=== PATIENT | female | born 1965 | race Caucasian/White ===

== ENCOUNTER 2016-10-14 02:56 | Emergency (ER) | payer OTHER, BC ==
[2016-10-14] MEDS ORDERED: TYLENOL 325 MG TAB PO ONE ×2 (03:12→03:14)
[2016-10-14 03:25] VITALS: BP 146/80; BMI 52.9
--- NOTE | 2016-10-14 03:31 | DR.GENAD ---
HPI - PCP Primary Care Physician: rosenda - HPI Comment HPI Comment: Swelling left lower leg - Complaint/Symptoms Chief Complaint:: pt c/o lt leg pain and swelling-has poor circulation to leg - Nurses notes reviewed Nurses Notes Review: Yes - Source History Provided: Patient, Family Member - Mode of Arrival Mode of Arrival: Wheelchair - Timing Onset of Chief Complaint: 10/13/16 PMH - PMH Past Medical History: Yes Past Medical History: Diabetes, Hypertension Past Surgical History: Yes Surgical History: Abdominal Surgery, Cholecystectomy, Other Past Surgical History Comment: tubal - Family History History of Family Medical Conditions: Yes Family Medical History: Cancer, Coronary Artery Disease, Sudden Cardiac , Hypertension - Social History Do you use any recreational Drugs:: No - infectious screening In the last 2 months have you had wt loss of >10#?: NO Have you had fever, night sweats or hemotysis?: No Have you traveled outside the country in the last 6 months?: No Isolation: Standard ROS - Review of Systems Constitutional: No Symptoms Reported Eyes: No Symptoms Reported ENTM: No Symptoms Reported Respiratoy: No Symptoms Reported Cardiovascular: No Symptoms Reported Gastrointestinal/Abdominal: No Symptoms Reported Genitourinary: No Symptoms Reported Neurological: No Symptoms Reported Musculoskeletal: No Symptoms Reported Integumentary: See HPI Hematologic/Lymphatic: No Symptoms Reported Endocrine: No Symptoms Reported Psychiatric: No Symptoms Reported All Other Systems: Reviewed and Negative PE - Vital Signs Vitals: Temperature 101.1 F Pulse Rate 109 Respiratory Rate 22 Blood Pressure [Left Arm] 165/81 Blood Pressure [Right Arm] 160/67 Blood Pressure [Standing] 136/64 Blood Pressure [Sitting] 123/60 Blood Pressure [Lying] 166/63 Blood Pressure 146/80 O2 Sat by Pulse Oximetry 98 - General Limitations: No Limitations General Appearance: Alert, In No Apparent Distress - Head Head Exam: Normal Inspection - Eyes Eye exam: Normal Appearance - ENT ENT Exam: Normal Exam External Ear Exam: Normal External Inspection TM/Canal Exam: Bilateral Normal Nose Exam: Normal Nose Exam Mouth Exam: Normal Inspection Throat Exam: Normal Inspection - Neck Neck Exam: Normal Inspection - Chest Chest Inspection: Normal Inspection - Respiratory Respiratory Exam: Normal Lung Sounds Bilat Respiratory Exam: Bilateral Clear to Auscultation - Cardiovascular Cardiovascular Exam: Regular Rate, Normal Rhythm - Abdominal Exam Abdominal Exam: Normal Inspection, Normal Bowel Sounds, Soft - Extremities Extremities Exam: Full ROM, Joint Swelling - Back Back Exam: Normal Inspection, Full ROM - Neurologic Neurological Exam: Alert, Oriented X3, CN II-XII Intact - Psychiatric Psychiatric Exam: Normal Affect, Normal Mood - Skin Skin Exam: Warm, Dry, Intact, Normal Color Course - Education/Counseling Education/Counseling: Patient, Family Educated On: Treatment, Diagnosis, Needs for Follow Up - Diagnosis Discharge Problem: Cellulitis of left lower extremity - Discharge Plan Disposition: 01 HOME, SELF-CARE Condition: Stable - Follow ups/Referrals Follow ups/Referrals: YAS PIERSON [Primary Care Provider] - 3 days - Instructions Instructions: Diabetes and Foot Care, Cellulitis Additional Instructions: follow up with Dr. Pierson tomorrow about possible out patient treatment for cellulitis
[2016-10-14] MEDS ORDERED: TORADOL 30 MG VIAL IVP ONE (03:40)
[2016-10-14] MEDS ORDERED: CLEOCIN 600 MG IV PREMIX 600 MG/50 ML BAG IV ONE (03:40)
[2016-10-14] MEDS ORDERED: CLEOCIN VIAL 600 MG ONE (03:45)
[2016-10-14] MEDS ORDERED: TORADOL 30 MG VIAL ONE (03:45)
[2016-10-14] MEDS ORDERED: NS 100 ML IV 100 ML IV ONE (03:45)
== END 2016-10-14 04:46 | disposition home or self-care (01) ==
LOC: ER 02:56
DX: L03.116 Cellulitis of left lower limb (principal)
CPT/HCPCS: 96365; 96374; 96375; 99282; 99283; A4222; J1885; S0077

== ENCOUNTER → 2016-10-15 | Outpatient (CLI) | payer OTHER, BC ==
[2016-10-14 03:25] VITALS: BP 146/80
[2016-10-15 13:01] LABS: BASOPHILS # (AUTO) 0.1 X10^3/uL (0.0-0.1); BASOPHILS % (AUTO) 0.8 % (0.2-1.0); EOSINOPHILS # (AUTO) 0.2 x10^3/uL (0.0-0.2); EOSINOPHILS % (AUTO) 1.6 % (0.9-2.9); HEMATOCRIT 31.8 % (36.0-47.0); HEMOGLOBIN 10.2 g/dL (12.0-16.0); LYMPHOCYTES # (AUTO) 1.4 X10^3/uL (1.3-2.9); LYMPHOCYTES % (AUTO) 11.6 % (21.0-51.0); MEAN PLATELET VOLUME 8.3 fL (7.4-11.0); MONOCYTES # (AUTO) 0.9 x10^3/uL (0.3-0.8); MONOCYTES % (AUTO) 7.3 % (0.0-13.0); NEUTROPHILS # (AUTO) 9.7 x10^3/uL (2.2-4.8); NEUTROPHILS % (AUTO) 78.7 % (42.0-75.0); PLATELET COUNT 285 X10^3/uL (150.0-450.0); RED BLOOD COUNT 4.25 X10^6/uL (3.5-5.4); RED CELL DISTRIBUTION WIDTH 18.9 % (11.6-16.5); WHITE BLOOD COUNT 12.4 X10^3/uL (3.6-10.0)
[2016-10-15 13:16] LABS: HEMOGLOBIN A1C 6.9 % (4.5-6.2)
[2016-10-15 13:17] LABS: ALANINE AMINOTRANSFERASE 34 Units/L (12-78); ALBUMIN 2.9 g/dL (3.4-5.0); ALKALINE PHOSPHATASE 126 Units/L (46-116); ASPARTATE AMINO TRANSFERASE 61 Units/L (15-37); BLOOD UREA NITROGEN 20 mg/dL (7-18); CALCIUM 8.4 mg/dL (8.5-10.1); CARBON DIOXIDE 26.5 mmol/L (21-32); CHLORIDE 102 mmol/L (98-107); CHOL/HDL RATIO 3.3 (0.0-5.0); CHOLESTEROL 129 mg/dL (0-200); COR CA(FOR HYPOALB) 9.3 mg/dL (8.5-10.1); CREATININE 1.37 mg/dL (0.55-1.02); GLUCOSE 88 mg/dL (65-99); HDL CHOLESTEROL 39 mg/dL (40-60); SODIUM 137 mmol/L (136-145); TRIGLYCERIDES 61 mg/dL (0-150); eGFR BLACK RACES 52 (>60); eGFR NON BLACK RACES 43 (>60)
[2016-10-15 13:25] LABS: CREATININE,URINE 153.02 mg/dL (29-226); MICROALBUMIN,URINE 39.8 mg/L
[2016-10-15 13:58] LABS: PLATELET MORPHOLOGY COMMENT NORMAL (NORMAL)
[2016-10-15 13:59] LABS: HYPOCHROMASIA SLIGHT
== END ==
LOC: LAB 12:21
PROVIDERS: ATTEND Obstetrics & Gynecology Obstetrics
DX: E11.9 Type 2 diabetes mellitus without complications (principal)
CPT/HCPCS: 36415; 80053; 80061; 82043; 83036; 85025

== ENCOUNTER 2016-11-11 22:02 | Inpatient (IN) | payer OTHER, BC ==
--- NOTE | 2016-11-11 23:17 | DR.GENAD ---
HPI - PCP Primary Care Physician: DANGELO - HPI Comment HPI Comment: PATIENT IS WEAK AND SHE IS RUNNING FEVER. SHE HAS CHRONIC STASIS DERMATITIS BUT SHE BELIEVE THIS TO BE SPIDER BITE. SHE IS A DIABETIC PATIENT. - Complaint/Symptoms Chief Complaint Doctors Comments: LEFT LEG SWOLLEN, RED AND PUSTLAR LESION ON THE ANTERIOR ASPECT OF THE DRAINING PUS. SHE STARTED TO NOTICE CHANGES 3 DAYS AGO. Chief Complaint:: PT STATES" I WANT TOO BE ADMITTED IN THE HOSPITAL I DON'T FEEL GOOD I NEED TOO BE IN THE HOSPITAL. I'M WEAK AND I JUST WANT TOO BE IN THE HOSPITAL I'M WEAK." - Nurses notes reviewed Nurses Notes Review: Yes - Source History Provided: Patient - Mode of Arrival Mode of Arrival: Wheelchair - Timing Onset of Chief Complaint: 11/08/16 Came on: Suddenly - Duration Duration: Constant Duration: Days - Severity Severity: Moderate PMH - PMH Past Medical History: Yes Past Medical History: Diabetes, Hypertension Past Surgical History: Yes Surgical History: Abdominal Surgery, Cholecystectomy, Other - Family History History of Family Medical Conditions: Yes Family Medical History: Cancer, Coronary Artery Disease, Sudden Cardiac , Hypertension - Social History Do you use any recreational Drugs:: No - infectious screening In the last 2 months have you had wt loss of >10#?: NO Have you had fever, night sweats or hemotysis?: No Have you traveled outside the country in the last 6 months?: No Isolation: Standard ROS - Review of Systems Constitutional: Chills, Fever, Weakness, Fatigue Eyes: No Symptoms Reported. negative: Eye Pain, Discharge ENTM: No Symptoms Reported Respiratoy: Non-Productive Cough, Short of Breath (ON EXERSION), Wheezing. negative: Hemoptysis Cardiovascular: Edema. negative: Chest Pain Gastrointestinal/Abdominal: Nausea. negative: Abdominal Pain, Diarrhea, Vomiting Genitourinary: No Symptoms Reported. negative: Dysuria, Frequency, Hematuria Neurological: Headache, Weakness, Dizziness Musculoskeletal: Joint Pain, Joint Swelling, Muscle Pain Integumentary: Change in Color, Wound (LT LEG) Hematologic/Lymphatic: Easy Bruising Endocrine: negative: Flushing, Increased Thirst, Increased Urine All Other Systems: Reviewed and Negative PE - Vital Signs Vitals: Temperature 101.3 F Pulse Rate 112 Respiratory Rate 18 Blood Pressure [Left Arm] 165/81 Blood Pressure [Right Arm] 160/67 Blood Pressure [Standing] 136/64 Blood Pressure [Sitting] 123/60 Blood Pressure [Lying] 166/63 Blood Pressure 142/68 O2 Sat by Pulse Oximetry 98 - General Limitations: No Limitations General Appearance: Alert - Head Head Exam: Normal Inspection - Eyes Eye exam: Normal Appearance - ENT ENT Exam: Normal External Ear Exam External Ear Exam: Normal External Inspection TM/Canal Exam: Bilateral Normal Nose Exam: Normal Nose Exam Mouth Exam: Normal Inspection Throat Exam: Normal Inspection - Neck Neck Exam: Trachea Midline - Chest Chest Inspection: Symmetric Chest Wall Rise - Respiratory Respiratory Exam: Normal Lung Sounds Bilat Respiratory Exam: Bilateral Wheezing, Bilateral Rhonchi, Lower Wheezing, Lower Rhonchi - Cardiovascular Cardiovascular Exam: Regular Rate, Normal Rhythm, Normal Heart Sounds - Abdominal Exam Abdominal Exam: Normal Bowel Sounds, Soft. negative: Tenderness - Extremities Extremities Exam: Tenderness (LT LEG), Edema, Joint Swelling (LT LEG) - Back Back Exam: Normal Inspection - Neurologic Neurological Exam: Alert, Oriented X3 - Psychiatric Psychiatric Exam: Anxious - Skin Skin Exam: Erythema MDM - Additional Information Additional Information Obtained From: Family - Differential Diagnosis Differential Diagnosis: CELLULITIS LLE, ABSCESS LLE, DM Course - Treatment Treatment: SEE ORDERS. - Consultation Consultation Comments: DISCUSS PATIENT WITH DR. PIERSON. HE WILL ADMIT PATIENT. - Education/Counseling Education/Counseling: Patient, Family, Education Educated On: Treatment, Diagnosis ROR - Labs Reviewed Laboratory Results Reviewed?: Yes Result Diagrams: 11/12/16 04:30 11/12/16 04:30 Laboratory: WBC 26.2 X10^3/uL (3.6-10.0) H* 11/11/16 23:35 RBC 4.18 X10^6/uL (3.5-5.4) 11/11/16 23:35 Hgb 10.3 g/dL (12.0-16.0) L 11/11/16 23:35 Hct 32.1 % (36.0-47.0) L 11/11/16 23:35 MCV 76.9 fL (80.0-100.0) L 11/11/16 23:35 MCH 24.7 pg (27.0-34.0) L 11/11/16 23:35 MCHC 32.1 g/dL (33.0-35.0) L 11/11/16 23:35 RDW 18.5 % (11.6-16.5) H 11/11/16 23:35 Plt Count 159 X10^3/uL (150.0-450.0) 11/11/16 23:35 Plt Count Comment Adequate (ADEQUATE) 11/11/16 23:35 MPV 8.5 fL (7.4-11.0) 11/11/16 23:35 Neut % 94.6 % (42.0-75.0) H 11/11/16 23:35 Lymph % 2.8 % (21.0-51.0) L 11/11/16 23:35 [place] % 2.5 % (0.0-13.0) 11/11/16 23:35 Eos % 0.0 % (0.9-2.9) L 11/11/16 23:35 Baso % 0.1 % (0.2-1.0) L 11/11/16 23:35 Neut # 24.8 x10^3/uL (2.2-4.8) H 11/11/16 23:35 Lymph # 0.7 X10^3/uL (1.3-2.9) L 11/11/16 23:35 [place] # 0.7 x10^3/uL (0.3-0.8) 11/11/16 23:35 Eos # 0.0 x10^3/uL (0.0-0.2) 11/11/16 23:35 Baso # 0.0 X10^3/uL (0.0-0.1) 11/11/16 23:35 Absolute Nucleated RBC 0.0 /100WBC 11/11/16 23:35 Total Counted 100 11/11/16 23:35 Neutrophils % (Manual) 77 % (39-76) H 11/11/16 23:35 Band Neutrophils % 18 % (0-10) H 11/11/16 23:35 Lymphocytes % (Manual) 3 % (13-43) L 11/11/16 23:35 Monocytes % (Manual) 2 % (4-9) L 11/11/16 23:35 Plt Morphology Comment Normal (NORMAL) 11/11/16 23:35 RBC Morphology Abnormal (NORMAL) A 11/11/16 23:35 Hypochromasia Slight A 11/11/16 23:35 Anisocytosis 1+ A 11/11/16 23:35 Microcytosis Slight A 11/11/16 23:35 Sodium 135 mmol/L (136-145) L 11/11/16 23:35 Corrected Sodium 137 mmol/L (136-145) 11/11/16 23:35 Potassium 3.9 mmol/L (3.5-5.1) 11/11/16 23:35 Chloride 99 mmol/L (98-107) 11/11/16 23:35 Carbon Dioxide 27.0 mmol/L (21-32) 11/11/16 23:35 BUN 16 mg/dL (7-18) 11/11/16 23:35 Creatinine 1.52 mg/dL (0.55-1.02) H 11/11/16 23:35 Est GFR (MDRD) Af Amer 46 (>60) L 11/11/16 23:35 Est GFR (MDRD) Non-Af 38 (>60) L 11/11/16 23:35 Glucose 187 mg/dL (65-99) H 11/11/16 23:35 Calcium 7.9 mg/dL (8.5-10.1) L 11/11/16 23:35 Corrected Calcium 8.9 mg/dL (8.5-10.1) 11/11/16 23:35 Total Bilirubin 0.90 mg/dL (0.2-1.0) 11/11/16 23:35 AST 27 Units/L (15-37) 11/11/16 23:35 ALT 22 Units/L (12-78) 11/11/16 23:35 Alkaline Phosphatase 127 Units/L (46-116) H 11/11/16 23:35 Total Protein 7.8 g/dL (6.4-8.2) 11/11/16 23:35 Albumin 2.7 g/dL (3.4-5.0) L 11/11/16 23:35 Globulin 5.1 g/dL (2.5-4.5) H 11/11/16 23:35 Albumin/Globulin Ratio 0.5 Ratio (1.1-2.1) L 11/11/16 23:35 Influenza A (H1N1) PCR Not detected (NOT DETECT) 11/11/16 22:33 Influenza Type A (PCR) Negative (NEGATIVE) 11/11/16 22:33 Influenza Type B (PCR) Negative (NEGATIVE) 11/11/16 22:33 - XRAY XRAY Interpreted by: Radiologist XRAY Findings: REPORT DISCUSS WITH PATIENT. - Diagnosis Discharge Problem: Cellulitis of left lower extremity, Diabetes mellitus type 2 - Discharge Plan Disposition: ADMITTED INPATIENT Condition: Stable - Follow ups/Referrals - Instructions
[2016-11-11 23:52] LABS: BASOPHILS % (AUTO) 0.1 % (0.2-1.0); HEMATOCRIT 32.1 % (36.0-47.0); HEMOGLOBIN 10.3 g/dL (12.0-16.0); LYMPHOCYTES # (AUTO) 0.7 X10^3/uL (1.3-2.9); LYMPHOCYTES % (AUTO) 2.8 % (21.0-51.0); MEAN CORPUSCULAR HEMOGLOBIN 24.7 pg (27.0-34.0); MEAN CORPUSCULAR HGB CONC 32.1 g/dL (33.0-35.0); MEAN CORPUSCULAR VOLUME 76.9 fL (80.0-100.0); MEAN PLATELET VOLUME 8.5 fL (7.4-11.0); MONOCYTES # (AUTO) 0.7 x10^3/uL (0.3-0.8); MONOCYTES % (AUTO) 2.5 % (0.0-13.0); NEUTROPHILS # (AUTO) 24.8 x10^3/uL (2.2-4.8); NEUTROPHILS % (AUTO) 94.6 % (42.0-75.0); PLATELET COUNT 159 X10^3/uL (150.0-450.0); RED BLOOD COUNT 4.18 X10^6/uL (3.5-5.4); RED CELL DISTRIBUTION WIDTH 18.5 % (11.6-16.5)
[2016-11-11 23:55] LABS: WHITE BLOOD COUNT 26.2 X10^3/uL (3.6-10.0)
[2016-11-12 00:02] LABS: ALBUMIN 2.7 g/dL (3.4-5.0); ANISOCYTOSIS 1+; BAND NEUTROPHILS % 18 % (0-10); CALCIUM 7.9 mg/dL (8.5-10.1); COR CA(FOR HYPOALB) 8.9 mg/dL (8.5-10.1); CREATININE 1.52 mg/dL (0.55-1.02); HYPOCHROMASIA SLIGHT; MICROCYTOSIS SLIGHT; PLATELET MORPHOLOGY COMMENT NORMAL (NORMAL)
[2016-11-12 00:13] LABS: TOTAL PROTEIN 7.8 g/dL (6.4-8.2)
[2016-11-12] MEDS ORDERED: PHENERGAN TAB 25 MG PO PRN (00:53)
[2016-11-12] MEDS ORDERED: VANCOMYCIN 1 GM PREMIX (ADDVANTAGE) 250 ML IV NR (01:00)
[2016-11-12] MEDS: NS 1000 ML 1,000 ML IV SCH ×3 (01:13→18:21)
[2016-11-12] MEDS: MORPHINE SULFATE INJ 4 MG IVP PRN ×2 (01:15→19:07)
[2016-11-12] MEDS: TYLENOL 325 MG TAB PO PRN ×3 (02:20→20:39)
--- NOTE | 2016-11-12 03:47 | RAD ---
Chest, one view Indication: Chest pain. Findings: Borderline cardiomegaly is unchanged. There is stable positioning of the right subclavian Port-A-Cath. No overt edema, focal infiltrates, or large effusion identified. Impression: No acute cardiopulmonary disease or significant change from prior. Reported By:
[2016-11-12 05:36] LABS: BASOPHILS # (AUTO) 0.1 X10^3/uL (0.0-0.1); BASOPHILS % (AUTO) 0.3 % (0.2-1.0); HEMATOCRIT 29.7 % (36.0-47.0); HEMOGLOBIN 9.4 g/dL (12.0-16.0); LYMPHOCYTES # (AUTO) 0.8 X10^3/uL (1.3-2.9); LYMPHOCYTES % (AUTO) 3.4 % (21.0-51.0); MEAN CORPUSCULAR HEMOGLOBIN 24.5 pg (27.0-34.0); MEAN CORPUSCULAR HGB CONC 31.7 g/dL (33.0-35.0); MEAN CORPUSCULAR VOLUME 77.2 fL (80.0-100.0); MEAN PLATELET VOLUME 8.8 fL (7.4-11.0); MONOCYTES # (AUTO) 0.6 x10^3/uL (0.3-0.8); MONOCYTES % (AUTO) 2.6 % (0.0-13.0); NEUTROPHILS % (AUTO) 93.7 % (42.0-75.0); PLATELET COUNT 167 X10^3/uL (150.0-450.0); RED BLOOD COUNT 3.84 X10^6/uL (3.5-5.4); RED CELL DISTRIBUTION WIDTH 18.8 % (11.6-16.5)
[2016-11-12 05:37] LABS: WHITE BLOOD COUNT 23.5 X10^3/uL (3.6-10.0)
[2016-11-12 05:41] LABS: ALBUMIN 2.4 g/dL (3.4-5.0); CALCIUM 7.4 mg/dL (8.5-10.1); CARBON DIOXIDE 26.2 mmol/L (21-32); COR CA(FOR HYPOALB) 8.7 mg/dL (8.5-10.1); CREATININE 1.5 mg/dL (0.55-1.02); TOTAL PROTEIN 7.2 g/dL (6.4-8.2)
[2016-11-12] MEDS: ZOSYN VIAL 3.375 GM 3.375 GM in NS 100 ML IV + SPIKE MINIBAG* 100 ML IV SCH ×3 (05:45→21:05)
[2016-11-12 05:57] LABS: ANISOCYTOSIS 1+; BAND NEUTROPHILS % 22 % (0-10); HYPOCHROMASIA SLIGHT; MICROCYTOSIS SLIGHT; PLATELET MORPHOLOGY COMMENT NORMAL (NORMAL)
[2016-11-12] MEDS: LOVENOX INJ 30 MG SYR SC SCH ×2 (08:42→20:39)
[2016-11-12] MEDS ORDERED: ANTIVERT TAB 25 MG PO PRN (09:27)
[2016-11-12] MEDS ORDERED: PATIENT'S HOME MEDICATION RESPIRATORY (Oxycodone W/ Acetaminophen [Oxycodone/Acetaminophen PO PRN (09:27)
[2016-11-12] MEDS ORDERED: [UNRECOGNIZED DRUG - OTHER] PO SCH ×2 (09:30→14:00)
[2016-11-12] MEDS ORDERED: [UNRECOGNIZED DRUG - OTHER] PO SCH (09:30)
[2016-11-12] MEDS ORDERED: [UNRECOGNIZED DRUG - OTHER] PO SCH (09:30)
[2016-11-12] MEDS ORDERED: [UNRECOGNIZED DRUG - OTHER] PO SCH (09:30)
[2016-11-12] MEDS: ZOLOFT PO SCH (10:33)
[2016-11-12] MEDS: NEURONTIN CAP 400 MG PO SCH ×2 (10:33→20:40)
[2016-11-12] MEDS: COZAAR PO SCH (10:33)
[2016-11-12 10:35] LABS: BILIRUBIN,URINE NEGATIVE (NEGATIVE); BLOOD/HEMOGLOBIN,URINE 4+ (NEGATIVE); GLUCOSE, URINE NEGATIVE (NEGATIVE); KETONES,URINE NEGATIVE (NEGATIVE); LEUKOCYTE ESTERASE ,URINE 1+ (NEGATIVE); NITRITES,URINE NEGATIVE (NEGATIVE); PROTEIN,URINE 3+ (NEGATIVE); UROBILINOGEN,URINE NORMAL (NORMAL)
[2016-11-12 10:52] LABS: COLOR,URINE YELLOW (YELLOW)
[2016-11-12 10:53] LABS: APPEARANCE,URINE SLIGHTLY HAZY (CLEAR); BACTERIA,URINE TRACE /HPF (NEGATIVE); SQUAMOUS EPITHELIAL CELL,UR MODERATE /HPF (NEGATIVE)
[2016-11-12] MEDS ORDERED: K-DUR TAB 20 MEQ PO SCH (11:00)
[2016-11-12 16:40] VITALS: BMI 38.3
[2016-11-12] MEDS: VANCOMYCIN 1 GM PREMIX (ADDVANTAGE) 250 ML IV SCH (20:38)
[2016-11-12] MEDS: MIRAPEX TAB 0.25 MG PO SCH (20:40)
[2016-11-12] MEDS: SNACK - Diabetic Appropriate PO SCH (20:42)
[2016-11-12] MEDS: HumuLIN R SC PRN (20:47)
[2016-11-12] MEDS: VISTARIL PO PRN (22:32)
[2016-11-13] MEDS: NS 1000 ML 1,000 ML IV SCH ×3 (06:05→18:09)
[2016-11-13] MEDS: ZOSYN VIAL 3.375 GM 3.375 GM in NS 100 ML IV + SPIKE MINIBAG* 100 ML IV SCH ×3 (06:05→22:35)
[2016-11-13] MEDS: MORPHINE SULFATE INJ 4 MG IVP PRN (06:14)
[2016-11-13] MEDS: LOVENOX INJ 30 MG SYR SC SCH ×2 (08:39→20:40)
[2016-11-13] MEDS: ZOLOFT PO SCH (08:40)
[2016-11-13] MEDS: NEURONTIN CAP 400 MG PO SCH ×2 (08:40→20:42)
[2016-11-13] MEDS: COZAAR PO SCH (08:41)
[2016-11-13] MEDS: MIRAPEX TAB 0.25 MG PO SCH ×2 (08:41→20:42)
[2016-11-13] MEDS: VISTARIL PO PRN ×2 (08:45→23:42)
[2016-11-13] MEDS: SNACK - Diabetic Appropriate PO SCH (20:41)
[2016-11-13] MEDS: VANCOMYCIN 1 GM PREMIX (ADDVANTAGE) 250 ML IV SCH (20:42)
[2016-11-13] MEDS: HumuLIN R SC PRN (20:52)
[2016-11-13] MEDS: PERCOCET TAB 5/325 MG PO PRN (20:55)
[2016-11-14] MEDS: NS 1000 ML 1,000 ML IV SCH ×3 (03:25→17:19)
[2016-11-14 05:51] LABS: ALBUMIN 2.1 g/dL (3.4-5.0); CALCIUM 7.2 mg/dL (8.5-10.1); CARBON DIOXIDE 23.7 mmol/L (21-32); COR CA(FOR HYPOALB) 8.7 mg/dL (8.5-10.1); CREATININE 2.42 mg/dL (0.55-1.02); TOTAL PROTEIN 6.9 g/dL (6.4-8.2)
[2016-11-14] MEDS: ZOSYN VIAL 3.375 GM 3.375 GM in NS 100 ML IV + SPIKE MINIBAG* 100 ML IV SCH ×4 (06:03→22:03)
[2016-11-14 06:08] LABS: BASOPHILS % (AUTO) 0.4 % (0.2-1.0); EOSINOPHILS # (AUTO) 0.5 x10^3/uL (0.0-0.2); EOSINOPHILS % (AUTO) 5.2 % (0.9-2.9); HEMATOCRIT 26.8 % (36.0-47.0); HEMOGLOBIN 8.6 g/dL (12.0-16.0); LYMPHOCYTES # (AUTO) 1.6 X10^3/uL (1.3-2.9); LYMPHOCYTES % (AUTO) 15.3 % (21.0-51.0); MEAN CORPUSCULAR HEMOGLOBIN 24.7 pg (27.0-34.0); MEAN CORPUSCULAR VOLUME 77.1 fL (80.0-100.0); MEAN PLATELET VOLUME 9.3 fL (7.4-11.0); MONOCYTES # (AUTO) 0.8 x10^3/uL (0.3-0.8); MONOCYTES % (AUTO) 7.3 % (0.0-13.0); NEUTROPHILS # (AUTO) 7.4 x10^3/uL (2.2-4.8); NEUTROPHILS % (AUTO) 71.8 % (42.0-75.0); PLATELET COUNT 159 X10^3/uL (150.0-450.0); RED BLOOD COUNT 3.47 X10^6/uL (3.5-5.4); RED CELL DISTRIBUTION WIDTH 19.4 % (11.6-16.5); WHITE BLOOD COUNT 10.3 X10^3/uL (3.6-10.0)
[2016-11-14] MEDS: HumuLIN R SC PRN ×2 (06:11→11:07)
[2016-11-14 06:47] LABS: ANISOCYTOSIS SLIGHT; PLATELET MORPHOLOGY COMMENT NORMAL (NORMAL)
[2016-11-14] MEDS: NEURONTIN CAP 400 MG PO SCH ×2 (08:40→20:32)
[2016-11-14] MEDS: MIRAPEX TAB 0.25 MG PO SCH ×2 (08:40→20:32)
[2016-11-14] MEDS: LOVENOX INJ 30 MG SYR SC SCH ×2 (08:40→20:31)
[2016-11-14] MEDS: COZAAR PO SCH (08:40)
[2016-11-14] MEDS: ZOLOFT PO SCH (08:41)
[2016-11-14] MEDS: NS 1000 ML 2,000 ML IV ONE ×2 (09:22→13:25)
[2016-11-14] MEDS ORDERED: PROVENTIL NEB TX 0.083% 2.5MG/ 3ML NEB ONE (13:36)
[2016-11-14 16:45] LABS: CALCIUM 7.6 mg/dL (8.5-10.1); CREATININE 1.96 mg/dL (0.55-1.02)
[2016-11-14] MEDS: SNACK - Diabetic Appropriate PO SCH (19:45)
[2016-11-14 20:21] LABS: CREATININE 1.82 mg/dL (0.55-1.02); VANCOMYCIN,TROUGH 10.3 ug/mL (15-20)
[2016-11-14] MEDS: VISTARIL PO PRN (20:33)
[2016-11-14] MEDS: PERCOCET TAB 5/325 MG PO PRN (20:33)
[2016-11-14] MEDS: VANCOMYCIN 1 GM PREMIX (ADDVANTAGE) 250 ML IV SCH (20:36)
[2016-11-14] MEDS ORDERED: PHARMACY COMMENT IV SCH (20:45)
[2016-11-15] MEDS: NS 1000 ML 1,000 ML IV SCH ×2 (02:08→10:11)
[2016-11-15] MEDS: ZOSYN VIAL 3.375 GM 3.375 GM in NS 100 ML IV + SPIKE MINIBAG* 100 ML IV SCH (05:10)
[2016-11-15 06:36] LABS: BASOPHILS % (AUTO) 0.5 % (0.2-1.0); EOSINOPHILS # (AUTO) 0.6 x10^3/uL (0.0-0.2); EOSINOPHILS % (AUTO) 6.5 % (0.9-2.9); HEMATOCRIT 25.8 % (36.0-47.0); HEMOGLOBIN 8.3 g/dL (12.0-16.0); LYMPHOCYTES # (AUTO) 1.7 X10^3/uL (1.3-2.9); LYMPHOCYTES % (AUTO) 19.9 % (21.0-51.0); MEAN CORPUSCULAR HEMOGLOBIN 24.7 pg (27.0-34.0); MEAN CORPUSCULAR HGB CONC 32.2 g/dL (33.0-35.0); MEAN CORPUSCULAR VOLUME 76.9 fL (80.0-100.0); MEAN PLATELET VOLUME 9.5 fL (7.4-11.0); MONOCYTES # (AUTO) 0.6 x10^3/uL (0.3-0.8); MONOCYTES % (AUTO) 7.1 % (0.0-13.0); NEUTROPHILS # (AUTO) 5.6 x10^3/uL (2.2-4.8); PLATELET COUNT 154 X10^3/uL (150.0-450.0); RED BLOOD COUNT 3.36 X10^6/uL (3.5-5.4); RED CELL DISTRIBUTION WIDTH 19.3 % (11.6-16.5); WHITE BLOOD COUNT 8.5 X10^3/uL (3.6-10.0)
[2016-11-15 06:52] LABS: CALCIUM 7.8 mg/dL (8.5-10.1); CARBON DIOXIDE 22.9 mmol/L (21-32); COR CA(FOR HYPOALB) 9.4 mg/dL (8.5-10.1); CREATININE 1.57 mg/dL (0.55-1.02); TOTAL PROTEIN 6.9 g/dL (6.4-8.2)
[2016-11-15 07:29] LABS: ANISOCYTOSIS SLIGHT; HYPOCHROMASIA SLIGHT; PLATELET MORPHOLOGY COMMENT NORMAL (NORMAL)
[2016-11-15 07:57] VITALS: BP 148/77
[2016-11-15] MEDS: MIRAPEX TAB 0.25 MG PO SCH (08:09)
[2016-11-15] MEDS: LOVENOX INJ 30 MG SYR SC SCH (08:09)
[2016-11-15] MEDS: ZOLOFT PO SCH (08:10)
[2016-11-15] MEDS: NEURONTIN CAP 400 MG PO SCH (08:10)
[2016-11-15] MEDS: COZAAR PO SCH (08:10)
== END 2016-11-15 11:45 | disposition home or self-care (01) | DRG 603 ==
LOC: ER 22:17 → ICU 11-12 00:38
PROVIDERS: ADMIT Obstetrics & Gynecology Obstetrics; ATTEND Obstetrics & Gynecology Obstetrics
DX: L03.116 Cellulitis of left lower limb (principal); I87.8 Other specified disorders of veins; R50.9 Fever, unspecified; D72.828 Other elevated white blood cell count; R53.1 Weakness; I10 Essential (primary) hypertension; E11.65 Type 2 diabetes mellitus with hyperglycemia; R42 Dizziness and giddiness; M79.7 Fibromyalgia; G47.33 Obstructive sleep apnea (adult) (pediatric); E66.01 Morbid (severe) obesity due to excess calories; G25.81 Restless legs syndrome; E87.6 Hypokalemia; R94.4 Abnormal results of kidney function studies; N17.8 Other acute kidney failure; B95.62 Methicillin resistant Staphylococcus aureus infection as the cause of diseases classified elsewhere
CPT/HCPCS: 36415; 71010; 80048; 80053; 80202; 81001; 82565; 83605; 83735; 84132; 85025; 87040; 87070; 87075; 87077; 87186; 87205; 87502; 87503; 94640; 96365; 96374; 96375; 99284; A4222; Q0177; J1650; J1815; J2270; J2543; J3370; J7613

== ENCOUNTER 2017-04-22 01:13 | Emergency (ER) | payer OTHER, BC ==
[2017-04-22 01:26] VITALS: BP 143/72; BMI 55.7
--- NOTE | 2017-04-22 01:43 | DR.GENAD ---
HPI - PCP Primary Care Physician: PIERSON - Complaint/Symptoms Chief Complaint:: PT STATES" I GOT A ANT BITE ON MY LT LEG AND IT HURTS" REDNESS NOTED - Source History Provided: Patient - Mode of Arrival Mode of Arrival: Ambulatory - Timing Onset of Chief Complaint: 04/21/17 PMH - PMH Past Medical History: Yes Past Medical History: Diabetes, Hypertension Past Surgical History: Yes Surgical History: Abdominal Surgery, Cholecystectomy, Other - Family History History of Family Medical Conditions: Yes Family Medical History: Cancer, Coronary Artery Disease, Sudden Cardiac , Hypertension - Social History Does any household member use tobacco: Yes Alcohol Use: None Do you use any recreational Drugs:: No Lives With: Family Lives Where: Home - infectious screening In the last 2 months have you had wt loss of >10#?: NO Have you had fever, night sweats or hemotysis?: No Have you traveled outside the country in the last 6 months?: No Isolation: Standard ROS - Review of Systems Eyes: No Symptoms Reported ENTM: No Symptoms Reported Respiratoy: No Symptoms Reported Cardiovascular: No Symptoms Reported Gastrointestinal/Abdominal: No Symptoms Reported Genitourinary: No Symptoms Reported Neurological: No Symptoms Reported Musculoskeletal: No Symptoms Reported Integumentary: No Symptoms Reported Hematologic/Lymphatic: No Symptoms Reported Endocrine: No Symptoms Reported Psychiatric: No Symptoms Reported All Other Systems: Reviewed and Negative PE - Vital Signs Vitals: Temperature 97.8 F Pulse Rate 91 Respiratory Rate 20 Blood Pressure [Left Arm] 148/77 Blood Pressure [Right Arm] 160/67 Blood Pressure [Standing] 136/64 Blood Pressure [Sitting] 123/60 Blood Pressure [Lying] 166/63 Blood Pressure 143/72 O2 Sat by Pulse Oximetry 98 - General Limitations: No Limitations General Appearance: Alert, In No Apparent Distress - Head Head Exam: Normal Inspection, Atraumatic - Eyes Eye exam: Normal Appearance, PERRL - ENT ENT Exam: Normal Exam, Mucous Membranes Moist External Ear Exam: Normal External Inspection TM/Canal Exam: Bilateral Normal Nose Exam: Normal Nose Exam, Sinus Tenderness Mouth Exam: Normal Inspection Throat Exam: Normal Inspection - Neck Neck Exam: Normal Inspection, Full ROM - Chest Chest Inspection: Normal Inspection - Respiratory Respiratory Exam: Normal Lung Sounds Bilat Respiratory Exam: Bilateral Clear to Auscultation - Cardiovascular Cardiovascular Exam: Regular Rate, Normal Rhythm - Abdominal Exam Abdominal Exam: Normal Inspection Abdominal Tenderness: negative: RUQ, RLQ, LUQ, LLQ, Epigastrium, Suprapubic, Diffuse, Mild, Moderate, Severe, Other - Extremities Extremities Exam: Normal Inspection, Other (left lower extremity with erythema distal 1/3) - Back Back Exam: Normal Inspection - Neurologic Neurological Exam: Alert, Oriented X3, CN II-XII Intact - Psychiatric Psychiatric Exam: Normal Affect - Skin Skin Exam: Warm, Dry, Erythema (distal 1/3 of LLE) - Diagnosis Discharge Problem: Cellulitis Qualifiers: Site of cellulitis: extremity Site of cellulitis of extremity: lower extremity Laterality: left Qualified Code(s): L03.116 - Cellulitis of left lower limb - Discharge Plan Condition: Stable - Follow ups/Referrals Follow ups/Referrals: YAS PIERSON [Primary Care Provider] - 3 days - Instructions
[2017-04-22] MEDS ORDERED: ROCEPHIN VIAL 1 GM IM ONE (01:45)
[2017-04-22] MEDS ORDERED: ROCEPHIN VIAL 1 GM ONE (01:48)
[2017-04-22] MEDS ORDERED: XYLOCAINE 1 % (PLAIN) ONE (01:48)
== END 2017-04-22 02:12 | disposition home or self-care (01) ==
LOC: ER 01:13
DX: L03.116 Cellulitis of left lower limb (principal)
CPT/HCPCS: 96372; 99282; J0696; J2001

== ENCOUNTER 2017-06-13 02:52 | Emergency (ER) | payer OTHER, BC ==
[2017-06-13 03:07] VITALS: BP 160/78; BMI 56.7
[2017-06-13] MEDS ORDERED: LASIX PO ONE (03:22)
[2017-06-13] MEDS ORDERED: NEURONTIN CAP 300 MG PO ONE (03:22)
--- NOTE | 2017-06-13 03:23 | DR.GENAD ---
HPI - PCP Primary Care Physician: PIERSON - Complaint/Symptoms Chief Complaint Doctors Comments: Swollen lower extremities (legs). this is chronic. But they began burning yesterday. She saw her PCP on 06/09/17 and was started on both Doxycycline + Rifampin. She is not on diuretics due to kidney issues she states. Her next f/u with her PCP will be on 06/16/17. She has no dyspnea. Chief Complaint:: BILATERAL LOWER LEGS EDEMATOUS AND RED Self Treatment fo Chief Complaint: GABAPENTIN; DOXYCYCLINE; RIFAMPIN; ALOE - Nurses notes reviewed Nurses Notes Review: Yes - Source History Provided: Patient - Mode of Arrival Mode of Arrival: Ambulatory - Timing Onset of Chief Complaint: 06/13/17 Came on: Gradually - Modifying Factors Worsens:: nothing Improves:: nothing PMH - PMH Past Medical History: Yes Past Medical History: Asthma, CHF, Diabetes, Hypertension Past Medical History Comment: Diabetic neuropathy, CKD stage 2 Past Surgical History: Yes Surgical History: Hysterectomy Past Surgical History Comment: PORT INSERTION - Family History History of Family Medical Conditions: Yes Family Medical History: Diabetes Mellitus, Cancer, Heart Failure - Social History Does patient currently use any type of tobacco product: No Type of Tobacco Use: None Alcohol Use: None Do you use any recreational Drugs:: Yes Lives With: Spouse Lives Where: Home - infectious screening In the last 2 months have you had wt loss of >10#?: NO Have you had fever, night sweats or hemotysis?: No Have you traveled outside the country in the last 6 months?: No Isolation: Standard ROS - Review of Systems Constitutional: No Symptoms Reported Eyes: No Symptoms Reported ENTM: No Symptoms Reported Respiratoy: No Symptoms Reported Cardiovascular: Edema Gastrointestinal/Abdominal: No Symptoms Reported Genitourinary: No Symptoms Reported Neurological: No Symptoms Reported Musculoskeletal: No Symptoms Reported Integumentary: Other (red legs) Hematologic/Lymphatic: No Symptoms Reported Endocrine: No Symptoms Reported Psychiatric: No Symptoms Reported All Other Systems: Reviewed and Negative PE - Vital Signs Vitals: Temperature 99.3 F Pulse Rate 95 Respiratory Rate 22 Blood Pressure [Left Arm] 148/77 Blood Pressure [Right Arm] 160/67 Blood Pressure [Standing] 136/64 Blood Pressure [Sitting] 123/60 Blood Pressure [Lying] 166/63 Blood Pressure 160/78 O2 Sat by Pulse Oximetry 96 - General Limitations: No Limitations General Appearance: Alert, In No Apparent Distress - Head Head Exam: Normal Inspection - Eyes Eye exam: Normal Appearance - ENT ENT Exam: Normal Exam Nose Exam: Normal Nose Exam Mouth Exam: Normal Inspection Throat Exam: Normal Inspection - Neck Neck Exam: Normal Inspection - Chest Chest Inspection: Normal Inspection - Respiratory Respiratory Exam: Normal Lung Sounds Bilat - Cardiovascular Cardiovascular Exam: Regular Rate, Normal Rhythm, Other (pedal edema in an obese pt.) - Abdominal Exam Abdominal Exam: Normal Inspection, Normal Bowel Sounds, Soft - Extremities Extremities Exam: Edema. negative: Normal Inspection, Joint Swelling, Calf Tenderness - Back Back Exam: Normal Inspection - Neurologic Neurological Exam: Alert, Oriented X3, CN II-XII Intact - Psychiatric Psychiatric Exam: Normal Affect, Normal Mood - Skin Skin Exam: Other (mild cellulitis of distal legs) ROR - Labs Reviewed Result Diagrams: 06/13/17 03:45 Laboratory: Sodium 137 mmol/L (136-145) 06/13/17 03:45 Corrected Sodium 139 mmol/L (136-145) 06/13/17 03:45 Potassium 4.1 mmol/L (3.5-5.1) 06/13/17 03:45 Chloride 100 mmol/L (98-107) 06/13/17 03:45 Carbon Dioxide 27.4 mmol/L (21-32) 06/13/17 03:45 BUN 22 mg/dL (7-18) H 06/13/17 03:45 Creatinine 1.33 mg/dL (0.55-1.02) H 06/13/17 03:45 Est GFR (MDRD) Af Amer 54 (>60) L 06/13/17 03:45 Est GFR (MDRD) Non-Af 44 (>60) L 06/13/17 03:45 Glucose 170 mg/dL (65-99) H 06/13/17 03:45 Calcium 8.6 mg/dL (8.5-10.1) 06/13/17 03:45 - Diagnosis Discharge Problem: Pedal edema - Discharge Plan Disposition: 01 HOME, SELF-CARE Condition: Stable - Follow ups/Referrals Follow ups/Referrals: YAS PIERSON [Primary Care Provider] - 3 days - Instructions
[2017-06-13] MEDS ORDERED: LASIX ONE (03:27)
[2017-06-13 04:06] LABS: CALCIUM 8.6 mg/dL (8.5-10.1); CARBON DIOXIDE 27.4 mmol/L (21-32); CREATININE 1.33 mg/dL (0.55-1.02)
== END 2017-06-13 04:36 | disposition home or self-care (01) ==
LOC: ER 02:52
DX: R60.9 Edema, unspecified (principal)
CPT/HCPCS: 36415; 80048; 99282

== ENCOUNTER 2017-07-10 03:30 | Emergency (ER) | payer OTHER, BC ==
[2017-07-10 03:46] VITALS: BMI 52.9
--- NOTE | 2017-07-10 03:46 | DR.GENAD ---
HPI - PCP Primary Care Physician: DANGELO - HPI Comment HPI Comment: PATIENT FELL AND INJURED HER CHEST 2 DAYS AGO. INCREASING PAIN AROUND WHERE HER PORT-A-CATH IS. SHE IS NOT ABLE TO FEEL THE THE PORT BY PALPATION. CHRONIC CELLULITIS LEGS. NO CHANGE CURRENTLY. - Complaint/Symptoms Chief Complaint Doctors Comments: FAA, INJURY CHEST. Chief Complaint:: PT STATES" I FELL FRIDAY NIGHT AND NOW I CAN'T FEEL MY PAC I NEED TO GET A XRAY TO MAKE SURE IT IS STILL THERE" - Nurses notes reviewed Nurses Notes Review: Yes - Source History Provided: Patient - Mode of Arrival Mode of Arrival: Ambulatory - Timing Onset of Chief Complaint: 07/08/17 Came on: Suddenly - Duration Duration: Constant Duration: Days - Severity Severity: Moderate PMH - PMH Past Medical History: Yes Past Medical History: Asthma, CHF, Diabetes, Hypertension Past Surgical History: Yes Surgical History: Hysterectomy - Family History History of Family Medical Conditions: Yes Family Medical History: Diabetes Mellitus, Cancer, Heart Failure - Social History Do you use any recreational Drugs:: Yes Lives With: Family Lives Where: Home - infectious screening In the last 2 months have you had wt loss of >10#?: NO Have you had fever, night sweats or hemotysis?: No Have you traveled outside the country in the last 6 months?: No Isolation: Standard ROS - Review of Systems Constitutional: No Symptoms Reported, Weakness (CHRONIC), Fatigue Eyes: negative: Eye Pain, Discharge ENTM: negative: Ear Pain, Nose Discharge, Nose Congestion, Throat Pain Respiratoy: Non-Productive Cough, Short of Breath, Wheezing. negative: Productive Cough, Hemoptysis Cardiovascular: Edema (LOWER EXTREMITIES. ) Gastrointestinal/Abdominal: negative: Abdominal Pain, Diarrhea, Nausea, Vomiting Genitourinary: Frequency. negative: Dysuria, Hematuria Neurological: Headache, Numbness, Weakness Musculoskeletal: Back Pain, Joint Pain, Joint Swelling, Muscle Pain Integumentary: Change in Color, Other (CELLULITIS LOWER EXTREMITIES. ) Hematologic/Lymphatic: Easy Bleeding, Easy Bruising Endocrine: No Symptoms Reported All Other Systems: Reviewed and Negative PE - Vital Signs Vitals: Temperature 98.6 F Pulse Rate [Left Radial] 88 Pulse Rate 93 Respiratory Rate 18 Blood Pressure [Left Arm] 158/72 Blood Pressure [Right Arm] 160/67 Blood Pressure [Standing] 136/64 Blood Pressure [Sitting] 123/60 Blood Pressure [Lying] 166/63 Blood Pressure 162/79 O2 Sat by Pulse Oximetry 98 - General Limitations: No Limitations General Appearance: Alert - Head Head Exam: Normal Inspection - Eyes Eye exam: Normal Appearance - ENT ENT Exam: Normal External Ear Exam External Ear Exam: Normal External Inspection TM/Canal Exam: Bilateral Normal Nose Exam: Normal Nose Exam Mouth Exam: Normal Inspection Throat Exam: Normal Inspection - Neck Neck Exam: Normal Inspection - Chest Chest Inspection: Symmetric Chest Wall Rise, Tenderness (ANTERIOR CHEST WALL.) - Respiratory Respiratory Exam: Normal Lung Sounds Bilat, Chest Wall Tenderness (PAPABLE PORT- A-CATH RT UPPER CHEST) Respiratory Exam: Bilateral Wheezing, Bilateral Rhonchi, Upper Wheezing, Lower Wheezing, Lower Rhonchi - Cardiovascular Cardiovascular Exam: Regular Rate, Normal Rhythm, Normal Heart Sounds - Abdominal Exam Abdominal Exam: Normal Bowel Sounds, Soft, Dimnished Bowel Sounds Abdominal Tenderness: Moderate - Extremities Extremities Exam: Tenderness - Back Back Exam: Paraspinal Tenderness - Neurologic Neurological Exam: Alert, Oriented X3 - Psychiatric Psychiatric Exam: Normal Affect, Normal Mood - Skin Skin Exam: Erythema MDM - Differential Diagnosis Differential Diagnosis: CHEST WALL CONTUSION, RIB CONTUSION, FRACTURE Course - Treatment Treatment: SEE ORDERS. - Education/Counseling Education/Counseling: Patient, Education Educated On: Diagnosis, Needs for Follow Up ROR - XRAY XRAY Interpreted by: Radiologist XRAY Findings: REPORT DISCUSS WITH PATIENT. - Diagnosis Discharge Problem: Chest wall contusion Qualifiers: Encounter type: initial encounter Laterality: right Qualified Code(s): S20.211A - Contusion of right front wall of thorax, initial encounter Rib contusion Qualifiers: Encounter type: initial encounter Laterality: right Qualified Code(s): S20.211A - Contusion of right front wall of thorax, initial encounter - Discharge Plan Disposition: 01 HOME, SELF-CARE Condition: Stable - Follow ups/Referrals Follow ups/Referrals: YAS PIERSON [Primary Care Provider] - 1 day - Instructions Instructions: Blunt Chest Trauma Additional Instructions: RETURN TO ED IF WORSE.
--- NOTE | 2017-07-10 04:50 | RAD ---
Chest AP portable Indication: Pain after fall. Findings: Port-A-Cath tip projects in an unchanged position over the SVC. There is no pneumothorax, effusion or consolidation. Heart size is prominent, accentuated due technique and body habitus. No displaced fracture seen. Impression: Limited study shows no acute abnormality. Heart size is prominent, probably accentuated due to technique. Reported By:
[2017-07-10 05:43] VITALS: BP 158/72
== END 2017-07-10 05:38 | disposition home or self-care (01) ==
LOC: ER 03:30
DX: S20.211A Contusion of right front wall of thorax, initial encounter (principal); W19.XXXA Unspecified fall, initial encounter; Y92.9 Unspecified place or not applicable
CPT/HCPCS: 71010; 99282

== ENCOUNTER 2017-07-14 04:21 | Emergency (ER) | payer OTHER, BC ==
[2017-07-14 04:31] VITALS: BP 156/96; BMI 52.9
--- NOTE | 2017-07-14 04:51 | DR.GENAD ---
HPI - PCP Primary Care Physician: DANGELO - HPI Comment HPI Comment: HISTORY BELOW. - Complaint/Symptoms Chief Complaint Doctors Comments: REDNESS AND INCREASE SWELLING OF LEFT LEG WITH PAIN . CHRONIC CELLULITIS IN THE LEG THAT HAS GOTTEN WORSE. NO FEVER. Chief Complaint:: PATIENT LEFT LEG IS SWOLLEN, RED AND THE PAIN IS A 10. Self Treatment fo Chief Complaint: GABAPENTIN - Nurses notes reviewed Nurses Notes Review: Yes - Source History Provided: Patient - Mode of Arrival Mode of Arrival: Ambulatory - Timing Onset of Chief Complaint: 07/11/17 Came on: Gradually - Duration Duration: Constant Duration: Days - Severity Severity: Moderate PMH - PMH Past Medical History: Yes Past Medical History: Arthritis, Asthma, CHF, COPD, Diabetes, GERD, Hypertension , Kidney Stones Past Surgical History: Yes Surgical History: Hysterectomy Past Surgical History Comment: TUBES TIED, EAR SURGERY, GALLBLADDER, PORT A CATH - Family History History of Family Medical Conditions: Yes Family Medical History: Diabetes Mellitus, Cancer, [place], Hypertension - Social History Does any household member use tobacco: No Alcohol Use: None Do you use any recreational Drugs:: No Lives With: Family Lives Where: Home - infectious screening In the last 2 months have you had wt loss of >10#?: NO Have you had fever, night sweats or hemotysis?: No Have you traveled outside the country in the last 6 months?: No Isolation: Standard ROS - Review of Systems Constitutional: Weakness, Fatigue. negative: Chills, Diaphoresis, Fever Eyes: No Symptoms Reported. negative: Eye Pain, Discharge ENTM: negative: Ear Pain, Nose Discharge, Nose Congestion, Throat Pain Respiratoy: Non-Productive Cough, Short of Breath, Wheezing. negative: Productive Cough, Hemoptysis Cardiovascular: Chest Pain Gastrointestinal/Abdominal: No Symptoms Reported. negative: Abdominal Pain, Diarrhea, Nausea, Vomiting Genitourinary: No Symptoms Reported Neurological: Headache, Weakness, Dizziness Musculoskeletal: Back Pain, Back Integumentary: Change in Color Hematologic/Lymphatic: Anemia Endocrine: See HPI Psychiatric: No Symptoms Reported All Other Systems: Reviewed and Negative PE - Vital Signs Vitals: Temperature 98.5 F Pulse Rate 80 Respiratory Rate 20 Blood Pressure [Left Arm] 158/72 Blood Pressure [Right Arm] 160/67 Blood Pressure [Standing] 136/64 Blood Pressure [Sitting] 123/60 Blood Pressure [Lying] 166/63 Blood Pressure 156/96 O2 Sat by Pulse Oximetry 94 - General Limitations: No Limitations General Appearance: Alert - Head Head Exam: Normal Inspection - Eyes Eye exam: PERRL, EOMI. negative: Scleral Icterus, Conjunctival Injection - ENT ENT Exam: Normal External Ear Exam External Ear Exam: Normal External Inspection TM/Canal Exam: Bilateral Normal Nose Exam: Normal Nose Exam Mouth Exam: Normal Inspection - Neck Neck Exam: Trachea Midline - Chest Chest Inspection: Symmetric Chest Wall Rise - Respiratory Respiratory Exam: Normal Lung Sounds Bilat Respiratory Exam: Bilateral Wheezing, Bilateral Rhonchi, Upper Rhonchi, Lower Wheezing, Lower Rhonchi - Cardiovascular Cardiovascular Exam: Regular Rate, Normal Rhythm, Normal Heart Sounds - Abdominal Exam Abdominal Exam: Normal Bowel Sounds, Soft. negative: Tenderness - Extremities Extremities Exam: Tenderness (EDMA BOTH LOWER EXT. BUT LEFT GREATER THAN RIGHT. LLE IS RED AND TENDER WITH SWELLING. PULSES INTACT. NO WEEPING.) - Back Back Exam: Paraspinal Tenderness - Neurologic Neurological Exam: Alert, Oriented X3. negative: Motor Sensory Deficit - Psychiatric Psychiatric Exam: Normal Affect, Normal Mood - Skin Skin Exam: Erythema (RED LLE WITH SWELLING.) MDM - Differential Diagnosis Differential Diagnosis: CELLULITIS LLE, PAIN LLE Course - Treatment Treatment: SEE ORDERS. - Consultation Consultation Comments: DISCUSS PT WITH PIERSON. HE WANT PT D/C ON ANTIBIOTICS AND ELIQUIS. - Education/Counseling Education/Counseling: Patient, Education Educated On: Diagnosis, Needs for Follow Up ROR - Labs Reviewed Laboratory Results Reviewed?: Yes Result Diagrams: 07/14/17 05:00 07/14/17 05:00 Laboratory: WBC 9.0 X10^3/uL (3.6-10.0) 07/14/17 05:00 RBC 4.36 X10^6/uL (3.5-5.4) 07/14/17 05:00 Hgb 11.4 g/dL (12.0-16.0) L 07/14/17 05:00 Hct 34.9 % (36.0-47.0) L 07/14/17 05:00 MCV 79.9 fL (80.0-100.0) L 07/14/17 05:00 MCH 26.2 pg (27.0-34.0) L 07/14/17 05:00 MCHC 32.7 g/dL (33.0-35.0) L 07/14/17 05:00 RDW 16.8 % (11.6-16.5) H 07/14/17 05:00 Plt Count 260 X10^3/uL (150.0-450.0) 07/14/17 05:00 MPV 8.6 fL (7.4-11.0) 07/14/17 05:00 Neut % 68.7 % (42.0-75.0) 07/14/17 05:00 Lymph % 18.4 % (21.0-51.0) L 07/14/17 05:00 Morgan % 7.2 % (0.0-13.0) 07/14/17 05:00 Eos % 5.2 % (0.9-2.9) H 07/14/17 05:00 Baso % 0.5 % (0.2-1.0) 07/14/17 05:00 Neut # 6.2 x10^3/uL (2.2-4.8) H 07/14/17 05:00 Lymph # 1.7 X10^3/uL (1.3-2.9) 07/14/17 05:00 Morgan # 0.7 x10^3/uL (0.3-0.8) 07/14/17 05:00 Eos # 0.5 x10^3/uL (0.0-0.2) H 07/14/17 05:00 Baso # 0.0 X10^3/uL (0.0-0.1) 07/14/17 05:00 Absolute Nucleated RBC 0.0 /100WBC 07/14/17 05:00 D-Dimer 1140 ng/mL (0-400) H* 07/14/17 05:00 Sodium 138 mmol/L (136-145) 07/14/17 05:00 Corrected Sodium 139 mmol/L (136-145) 07/14/17 05:00 Potassium 4.4 mmol/L (3.5-5.1) 07/14/17 05:00 Chloride 103 mmol/L (98-107) 07/14/17 05:00 Carbon Dioxide 25.6 mmol/L (21-32) 07/14/17 05:00 BUN 18 mg/dL (7-18) 07/14/17 05:00 Creatinine 1.21 mg/dL (0.55-1.02) H 07/14/17 05:00 Est GFR (MDRD) Af Amer 60 (>60) 07/14/17 05:00 Est GFR (MDRD) Non-Af 49 (>60) L 07/14/17 05:00 Glucose 123 mg/dL (65-99) H 07/14/17 05:00 Calcium 8.9 mg/dL (8.5-10.1) 07/14/17 05:00 Corrected Calcium 9.5 mg/dL (8.5-10.1) 07/14/17 05:00 Total Bilirubin 0.40 mg/dL (0.2-1.0) 07/14/17 05:00 AST 33 Units/L (15-37) 07/14/17 05:00 ALT 50 Units/L (12-78) 07/14/17 05:00 Alkaline Phosphatase 122 Units/L (46-116) H 07/14/17 05:00 Creatine Kinase 105 Units/L (26-192) 07/14/17 05:00 CK-MB (CK-2) 2.4 ng/mL (0-4.0) 07/14/17 05:00 CK/CKMB % Calc 2.3 % (<4) 07/14/17 05:00 Troponin I < 0.02 ng/mL (0-1.5) 07/14/17 05:00 Total Protein 8.1 g/dL (6.4-8.2) 07/14/17 05:00 Albumin 3.2 g/dL (3.4-5.0) L 07/14/17 05:00 Globulin 4.9 g/dL (2.5-4.5) H 07/14/17 05:00 Albumin/Globulin Ratio 0.7 Ratio (1.1-2.1) L 07/14/17 05:00 - XRAY XRAY Interpreted by: Radiologist XRAY Findings: REPORT DISCUSS WITH PATIENT. - Diagnosis Discharge Problem: Pain in central left lower extremity, Cellulitis of left lower extremity, DVT ( deep vein thrombosis) in Cellulitis Qualifiers: Site of cellulitis: extremity Site of cellulitis of extremity: lower extremity Laterality: left Qualified Code(s): L03.116 - Cellulitis of left lower limb - Discharge Plan Condition: Stable Prescriptions: Apixaban [Eliquis] 10 mg PO BID 70 Days #60 tablet Ciprofloxacin HCl [CIPRO 500 MG TAB *] 500 mg PO Q12H #20 tab Doxycycline Monohydrate 100 mg PO BID #20 tablet - Follow ups/Referrals Follow ups/Referrals: YAS PIERSON [Primary Care Provider] - 3 days - Instructions Instructions: Cellulitis, Adult, [id number], Deep Vein Thrombosis Additional Instructions: RETURN TO ED IF WORSE.
[2017-07-14 05:19] LABS: BASOPHILS % (AUTO) 0.5 % (0.2-1.0); EOSINOPHILS # (AUTO) 0.5 x10^3/uL (0.0-0.2); EOSINOPHILS % (AUTO) 5.2 % (0.9-2.9); HEMATOCRIT 34.9 % (36.0-47.0); HEMOGLOBIN 11.4 g/dL (12.0-16.0); LYMPHOCYTES # (AUTO) 1.7 X10^3/uL (1.3-2.9); LYMPHOCYTES % (AUTO) 18.4 % (21.0-51.0); MEAN CORPUSCULAR HEMOGLOBIN 26.2 pg (27.0-34.0); MEAN CORPUSCULAR HGB CONC 32.7 g/dL (33.0-35.0); MEAN CORPUSCULAR VOLUME 79.9 fL (80.0-100.0); MEAN PLATELET VOLUME 8.6 fL (7.4-11.0); MONOCYTES # (AUTO) 0.7 x10^3/uL (0.3-0.8); MONOCYTES % (AUTO) 7.2 % (0.0-13.0); NEUTROPHILS # (AUTO) 6.2 x10^3/uL (2.2-4.8); NEUTROPHILS % (AUTO) 68.7 % (42.0-75.0); PLATELET COUNT 260 X10^3/uL (150.0-450.0); RED BLOOD COUNT 4.36 X10^6/uL (3.5-5.4); RED CELL DISTRIBUTION WIDTH 16.8 % (11.6-16.5)
[2017-07-14 05:46] LABS: BLOOD UREA NITROGEN 18 mg/dL (7-18); CALCIUM 8.9 mg/dL (8.5-10.1); CARBON DIOXIDE 25.6 mmol/L (21-32); CHLORIDE 103 mmol/L (98-107); COR NA(FOR HYPERGLY) 139 mmol/L (136-145); CREATININE 1.21 mg/dL (0.55-1.02); SODIUM 138 mmol/L (136-145); TROPONIN I < 0.02 ng/mL (0-1.5); eGFR BLACK RACES 60 (>60); eGFR NON BLACK RACES 49 (>60)
[2017-07-14 05:50] LABS: ALANINE AMINOTRANSFERASE 50 Units/L (12-78); ALBUMIN 3.2 g/dL (3.4-5.0); ALKALINE PHOSPHATASE 122 Units/L (46-116); ASPARTATE AMINO TRANSFERASE 33 Units/L (15-37); CKMB % 2.3 % (<4); COR CA(FOR HYPOALB) 9.5 mg/dL (8.5-10.1); CREATINE KINASE 105 Units/L (26-192); CREATINE KINASE MB 2.4 ng/mL (0-4.0); TOTAL PROTEIN 8.1 g/dL (6.4-8.2)
--- NOTE | 2017-07-14 08:04 | VAS ---
HISTORY: Left leg pain swelling Study: Venous Doppler of the left lower extremity Comparison: 09/14/2015. Technique: Grayscale, color and duplex Doppler imaging of the left lower extremity is provided. Findings: There is good color Doppler flow and duplex flow involving the left common femoral vein region. Florecita l compression is also seen. There is weak flow present involving the proximal left superficial femora l vein with no augmentation. No color flow is seen in this region as well as the mid and distal left superficial femoral vein as well as the left popliteal vein. Findings are compatible with extensive d eep vein thrombosis of the left lower extremity. IMPRESSION: Extensive deep vein thrombosis involving the left lower extremity. Reported By:
== END 2017-07-14 08:40 | disposition home or self-care (01) ==
LOC: ER 04:21
DX: L03.116 Cellulitis of left lower limb (principal); O22.30 Deep phlebothrombosis in pregnancy, unspecified trimester; M79.605 Pain in left leg
CPT/HCPCS: 36415; 80053; 82550; 82553; 84484; 85025; 85378; 93971; 99283

== ENCOUNTER 2017-09-26 05:12 | Inpatient (IN) | payer OTHER, BC ==
[2017-09-26] MEDS ORDERED: DOPAMINE IV PREMIX 400 MG/250 ML 400 MG/250 ML BAG IV ONE (05:29)
[2017-09-26] MEDS: DOPAMINE IV PREMIX 400 MG/250 ML 400 MG/250 ML BAG IV PRN ×7 (05:48→21:49)
[2017-09-26] MEDS ORDERED: NS 1000 ML 1,000 ML IV ONE ×6 (05:56→10:17)
[2017-09-26] MEDS ORDERED: NS 1000 ML 1,000 ML ONE ×4 (05:56→09:04)
--- NOTE | 2017-09-26 05:59 | DR.GENAD ---
HPI - PCP Primary Care Physician: PIERSON - Complaint/Symptoms Chief Complaint Doctors Comments: Patient presents with complaint of falling times five on yesterday associated with diarrhea. She states that every times she eats something it just goes through her. Chief Complaint:: DIARRHEA SINCE LAST NIGHT, FELL TIMES 5 SINCE YESTERDAY AFTERNOON -"JUST LOST MY BALANCE. TIME I EAT IT GOES RIGHT THROUGH ME." - Source History Provided: Patient, EMS - Mode of Arrival Mode of Arrival: EMS - Timing Onset of Chief Complaint: 09/25/17 PMH - PMH Past Medical History: Yes Past Medical History: Arthritis, Asthma, CHF, COPD, Diabetes, GERD, Hypertension , Kidney Stones Past Surgical History: Yes Surgical History: Hysterectomy - Family History History of Family Medical Conditions: Yes Family Medical History: Diabetes Mellitus, Cancer, [place], Hypertension - Social History Does patient currently use any type of tobacco product: No Have you used tobacco products in the last 12 months: No Type of Tobacco Use: None Does any household member use tobacco: No Alcohol Use: None Do you use any recreational Drugs:: No Lives With: Spouse Lives Where: Home - infectious screening Have you traveled outside the country in the last 6 months?: No Isolation: Standard ROS - Review of Systems Constitutional: negative: Chills Eyes: No Symptoms Reported ENTM: No Symptoms Reported Respiratoy: No Symptoms Reported Cardiovascular: No Symptoms Reported Gastrointestinal/Abdominal: Diarrhea, Vomiting Genitourinary: No Symptoms Reported Neurological: Weakness Musculoskeletal: No Symptoms Reported Integumentary: No Symptoms Reported Hematologic/Lymphatic: No Symptoms Reported Endocrine: No Symptoms Reported Psychiatric: No Symptoms Reported All Other Systems: Reviewed and Negative PE - Vital Signs Vitals: Temperature 97.7 F Pulse Rate [Left Brachial] 81 Pulse Rate 84 Respiratory Rate 22 Blood Pressure [Left Arm] 65/30 Blood Pressure [Right Arm] 86/39 Blood Pressure [Standing] 136/64 Blood Pressure [Sitting] 123/60 Blood Pressure [Lying] 166/63 Blood Pressure 78/43 O2 Sat by Pulse Oximetry 99 - General Limitations: No Limitations General Appearance: Alert - Head Head Exam: Normal Inspection, Atraumatic - Eyes Eye exam: Normal Appearance, PERRL - ENT ENT Exam: Mucous Membranes Dry External Ear Exam: Normal External Inspection TM/Canal Exam: Bilateral Normal Nose Exam: Normal Nose Exam Mouth Exam: Normal Inspection Throat Exam: Normal Inspection - Neck Neck Exam: Normal Inspection, Full ROM - Chest Chest Inspection: Normal Inspection - Respiratory Respiratory Exam: Normal Lung Sounds Bilat Respiratory Exam: Bilateral Clear to Auscultation - Cardiovascular Cardiovascular Exam: Regular Rate - Abdominal Exam Abdominal Exam: Normal Inspection Abdominal Tenderness: negative: RUQ, RLQ, LUQ, LLQ, Epigastrium, Suprapubic, Diffuse, Mild, Moderate, Severe, Other - Extremities Extremities Exam: Normal Inspection - Back Back Exam: Normal Inspection - Neurologic Neurological Exam: Alert, Oriented X3, CN II-XII Intact - Psychiatric Psychiatric Exam: Normal Affect - Skin Skin Exam: Warm, Dry, Intact Course - Consultation Called: 07:25 (Dr Pierson agreed to admit for further treatment and evaluation) ROR - Labs Reviewed Result Diagrams: 09/26/17 06:00 09/26/17 06:00 Laboratory: WBC 22.1 X10^3/uL (3.6-10.0) H 09/26/17 06:00 RBC 4.14 X10^6/uL (3.5-5.4) 09/26/17 06:00 Hgb 10.7 g/dL (12.0-16.0) L 09/26/17 06:00 Hct 33.3 % (36.0-47.0) L 09/26/17 06:00 MCV 80.4 fL (80.0-100.0) 09/26/17 06:00 MCH 25.9 pg (27.0-34.0) L 09/26/17 06:00 MCHC 32.3 g/dL (33.0-35.0) L 09/26/17 06:00 RDW 16.5 % (11.6-16.5) 09/26/17 06:00 Plt Count 216 X10^3/uL (150.0-450.0) 09/26/17 06:00 Plt Count Comment Adequate (ADEQUATE) 09/26/17 06:00 MPV 9.3 fL (7.4-11.0) 09/26/17 06:00 Neut % 51.5 % (42.0-75.0) 09/26/17 06:00 Lymph % 21.3 % (21.0-51.0) 09/26/17 06:00 Haralson % 26.2 % (0.0-13.0) H 09/26/17 06:00 Eos % 1.0 % (0.9-2.9) 09/26/17 06:00 Baso % 0 % (0.2-1.0) L 09/26/17 06:00 Neut # 11.4 x10^3/uL (2.2-4.8) H 09/26/17 06:00 Lymph # 4.7 X10^3/uL (1.3-2.9) H 09/26/17 06:00 Haralson # 5.8 x10^3/uL (0.3-0.8) H 09/26/17 06:00 Eos # 0.2 x10^3/uL (0.0-0.2) 09/26/17 06:00 Baso # 0.0 X10^3/uL (0.0-0.1) 09/26/17 06:00 Absolute Nucleated RBC 0.1 /100WBC 09/26/17 06:00 Total Counted 100 09/26/17 06:00 Neutrophils % (Manual) 83 % (39-76) H 09/26/17 06:00 Band Neutrophils % 3 % (0-10) 09/26/17 06:00 Lymphocytes % (Manual) 7 % (13-43) L 09/26/17 06:00 Monocytes % (Manual) 6 % (4-9) 09/26/17 06:00 Eosinophils % (Manual) 1 % (0-6) 09/26/17 06:00 Plt Morphology Comment Normal (NORMAL) 09/26/17 06:00 RBC Morphology Abnormal (NORMAL) A 09/26/17 06:00 Hypochromasia Slight A 09/26/17 06:00 Sodium 133 mmol/L (136-145) L 09/26/17 06:00 Corrected Sodium 134 mmol/L (136-145) L 09/26/17 06:00 Potassium 4.6 mmol/L (3.5-5.1) 09/26/17 06:00 Chloride 98 mmol/L (98-107) 09/26/17 06:00 Carbon Dioxide 22.6 mmol/L (21-32) 09/26/17 06:00 BUN 46 mg/dL (7-18) H 09/26/17 06:00 Creatinine 4.90 mg/dL (0.55-1.02) H 09/26/17 06:00 Est GFR (MDRD) Af Amer 12 (>60) L 09/26/17 06:00 Est GFR (MDRD) Non-Af 10 (>60) L 09/26/17 06:00 Glucose 141 mg/dL (65-99) H 09/26/17 06:00 Calcium 7.4 mg/dL (8.5-10.1) L 09/26/17 06:00 Corrected Calcium 8.4 mg/dL (8.5-10.1) L 09/26/17 06:00 Magnesium 2.3 mg/dL (1.7-2.9) 09/26/17 06:00 Total Bilirubin 0.30 mg/dL (0.2-1.0) 09/26/17 06:00 AST 59 Units/L (15-37) H 09/26/17 06:00 ALT 81 Units/L (12-78) H 09/26/17 06:00 Alkaline Phosphatase 120 Units/L (46-116) H 09/26/17 06:00 Creatine Kinase 1123 Units/L (26-192) H 09/26/17 06:00 CK-MB (CK-2) 22.2 ng/mL (0-4.0) H* 09/26/17 06:00 CK/CKMB % Calc 2.0 % (<4) 09/26/17 06:00 Troponin I < 0.02 ng/mL (0-1.5) 09/26/17 06:00 Total Protein 7.2 g/dL (6.4-8.2) 09/26/17 06:00 Albumin 2.7 g/dL (3.4-5.0) L 09/26/17 06:00 Globulin 4.5 g/dL (2.5-4.5) 09/26/17 06:00 Albumin/Globulin Ratio 0.6 Ratio (1.1-2.1) L 09/26/17 06:00 - XRAY XRAY Interpreted by: Radiologist (Chest: There is poor presence on the right. The heart is enlarged. No congestive heart failure is noted. The lungs are hypo inflated. No infitrates or pleural effusions are identified. The bony thorax is unremarkable. Impression: Cardiomegaly without congestive heart failure. Lungs hypo infated but clear. CT Head w/o The ventricles are normal in size shape and position. There are no areas of abnormal attenuation to suggest recent or remote CVA, hemorrhag, mass lesion, or extra axial fluid collection. There is opacification of the left maxillary sinus likely inflammatory in orgin. Postsurgical changes are present in the nasal cavity. The calvarium is intact. No significant intracranial abnormality indentied. Left maxillary sinusitis) - Diagnosis Discharge Problem: Hypovolemic shock, Left maxillary sinusitis, Acute prerenal azotemia - Discharge Plan Condition: Stable - Follow ups/Referrals Follow ups/Referrals: YAS PIERSON [Primary Care Provider] - 3 days - Instructions
[2017-09-26 06:14] LABS: EOSINOPHILS # (AUTO) 0.2 x10^3/uL (0.0-0.2); WHITE BLOOD COUNT 22.1 X10^3/uL (3.6-10.0)
[2017-09-26 06:20] LABS: BASOPHILS % (AUTO) 0 % (0.2-1.0); HEMATOCRIT 33.3 % (36.0-47.0); HEMOGLOBIN 10.7 g/dL (12.0-16.0); LYMPHOCYTES # (AUTO) 4.7 X10^3/uL (1.3-2.9); LYMPHOCYTES % (AUTO) 21.3 % (21.0-51.0); MEAN CORPUSCULAR HEMOGLOBIN 25.9 pg (27.0-34.0); MEAN CORPUSCULAR HGB CONC 32.3 g/dL (33.0-35.0); MEAN CORPUSCULAR VOLUME 80.4 fL (80.0-100.0); MEAN PLATELET VOLUME 9.3 fL (7.4-11.0); MONOCYTES # (AUTO) 5.8 x10^3/uL (0.3-0.8); MONOCYTES % (AUTO) 26.2 % (0.0-13.0); NEUTROPHILS # (AUTO) 11.4 x10^3/uL (2.2-4.8); NEUTROPHILS % (AUTO) 51.5 % (42.0-75.0); PLATELET COUNT 216 X10^3/uL (150.0-450.0); RED BLOOD COUNT 4.14 X10^6/uL (3.5-5.4); RED CELL DISTRIBUTION WIDTH 16.5 % (11.6-16.5)
[2017-09-26 06:29] LABS: BAND NEUTROPHILS % 3 % (0-10); HYPOCHROMASIA SLIGHT; PLATELET MORPHOLOGY COMMENT NORMAL (NORMAL)
[2017-09-26 06:36] LABS: BLOOD UREA NITROGEN 46 mg/dL (7-18); CALCIUM 7.4 mg/dL (8.5-10.1); CARBON DIOXIDE 22.6 mmol/L (21-32); CHLORIDE 98 mmol/L (98-107); COR NA(FOR HYPERGLY) 134 mmol/L (136-145); SODIUM 133 mmol/L (136-145); TROPONIN I < 0.02 ng/mL (0-1.5); eGFR BLACK RACES 12 (>60); eGFR NON BLACK RACES 10 (>60)
[2017-09-26 06:59] LABS: ALANINE AMINOTRANSFERASE 81 Units/L (12-78); ALBUMIN 2.7 g/dL (3.4-5.0); ALKALINE PHOSPHATASE 120 Units/L (46-116); ASPARTATE AMINO TRANSFERASE 59 Units/L (15-37); COR CA(FOR HYPOALB) 8.4 mg/dL (8.5-10.1); MAGNESIUM 2.3 mg/dL (1.7-2.9); TOTAL PROTEIN 7.2 g/dL (6.4-8.2)
[2017-09-26 07:01] LABS: CREATINE KINASE MB 22.2 ng/mL (0-4.0)
[2017-09-26 07:02] LABS: CREATINE KINASE 1123 Units/L (26-192)
--- NOTE | 2017-09-26 07:26 | CT ---
HISTORY: Dizziness Study: CT head without contrast Comparison: None Technique: Axial noncontrast images with coronal and sagittal reformats. Dose reduction procedures we re used with mA/kv adjusted for body size. Findings: The ventricles are normal in size shape and position. There are no areas of abnormal attenuation to s uggest recent or remote CVA, hemorrhage, mass lesion, or extra-axial fluid collection. There is opaci fication of the left maxillary sinus likely inflammatory in origin. Postsurgical changes are present in the nasal cavity. The calvarium is intact. IMPRESSION: No significant intracranial abnormality identified Left maxillary sinusitis Reported By:
--- NOTE | 2017-09-26 07:28 | RAD ---
HISTORY: Dizziness, hypotension Study: Chest AP portable Comparison: 07/10/2017 Findings: There is poor present on the right. The heart is enlarged. No congestive heart failure is noted. The lungs are hypo inflated. No infiltrates or pleural effusions are identified. The bony thorax is unrem arkable. IMPRESSION: Cardiomegaly without congestive heart failure Lungs hypo inflated but clear Reported By:
[2017-09-26] MEDS: NS 1000 ML 1,000 ML IV SCH ×3 (09:10→18:19)
[2017-09-26 09:38] LABS: BILIRUBIN,URINE NEGATIVE (NEGATIVE); BLOOD/HEMOGLOBIN,URINE 5+ (NEGATIVE); GLUCOSE, URINE 2+ (NEGATIVE); KETONES,URINE NEGATIVE (NEGATIVE); LEUKOCYTE ESTERASE ,URINE 1+ (NEGATIVE); NITRITES,URINE NEGATIVE (NEGATIVE); PROTEIN,URINE 3+ (NEGATIVE); UROBILINOGEN,URINE NORMAL (NORMAL)
[2017-09-26 09:41] LABS: APPEARANCE,URINE HAZY (CLEAR); COLOR,URINE YELLOW (YELLOW)
[2017-09-26 09:52] LABS: AMORPHOUS SEDIMENT,UR 3+ /HPF (NEGATIVE); BACTERIA,URINE TRACE /HPF (NEGATIVE); SQUAMOUS EPITHELIAL CELL,UR RARE /HPF (NEGATIVE)
[2017-09-26 10:45] LABS: ALBUMIN 2.6 g/dL (3.4-5.0); CALCIUM 6.8 mg/dL (8.5-10.1); CARBON DIOXIDE 22.7 mmol/L (21-32); COR CA(FOR HYPOALB) 7.9 mg/dL (8.5-10.1); CREATININE 4.5 mg/dL (0.55-1.02); TOTAL PROTEIN 7.2 g/dL (6.4-8.2)
[2017-09-26] MEDS ORDERED: MORPHINE SULFATE INJ 2 MG INJ IVP ONE (12:19)
[2017-09-26] MEDS ORDERED: MORPHINE SULFATE INJ 2 MG INJ ONE (12:20)
[2017-09-26 15:11] LABS: ALBUMIN 2.6 g/dL (3.4-5.0); CALCIUM 6.7 mg/dL (8.5-10.1); CARBON DIOXIDE 20.2 mmol/L (21-32); COR CA(FOR HYPOALB) 7.8 mg/dL (8.5-10.1); CREATININE 4.21 mg/dL (0.55-1.02); TOTAL PROTEIN 7.4 g/dL (6.4-8.2)
[2017-09-26] MEDS ORDERED: HumuLIN R SUBCUT PRN (16:27)
[2017-09-26] MEDS ORDERED: TYGACIL 50 MG VIAL 100 MG in NS 100 ML IV 100 ML IV ONE (16:55)
[2017-09-26] MEDS: NEURONTIN CAP 300 MG PO SCH ×3 (17:43→20:54)
[2017-09-26] MEDS: KAYEXALATE PO ONE ×2 (17:43→18:43)
[2017-09-26] MEDS ORDERED: NS 100 ML IV + SPIKE MINIBAG* 0 ML IV ONE (17:49)
[2017-09-26] MEDS ORDERED: TYGACIL 50 MG VIAL IV ONE (17:49)
[2017-09-26 18:21] LABS: ALBUMIN 2.5 g/dL (3.4-5.0); CALCIUM 6.7 mg/dL (8.5-10.1); CARBON DIOXIDE 25.6 mmol/L (21-32); COR CA(FOR HYPOALB) 7.9 mg/dL (8.5-10.1); CREATININE 3.99 mg/dL (0.55-1.02); TOTAL PROTEIN 7.3 g/dL (6.4-8.2)
[2017-09-26 18:47] LABS: ABG BASE EXCESS -7.7 mmol/L (-2.0-2.0); ABG HCO3 22.3 mmol/L (22-26)
[2017-09-26] MEDS ORDERED: KAYEXALATE RECTAL ONE (18:47)
[2017-09-26] MEDS: SNACK - Diabetic Appropriate PO SCH (20:53)
[2017-09-26] MEDS: MIRAPEX TAB 0.25 MG PO SCH (20:54)
[2017-09-26] MEDS: SINGULAIR TAB 10 MG PO SCH (20:54)
[2017-09-26] MEDS ORDERED: PATIENT'S HOME MEDICATION (Pramipexole Di-Hcl [Pramipexole Dihydrochloride] 1 TAB) PO SCH (21:00)
--- NOTE | 2017-09-26 21:45 | US ---
Ultrasound liver Indication: Hypovolemic shock. Elevated liver enzymes Technique: Dynamic grayscale, color and spectral Doppler through the liver. Findings: The gallbladder is absent. The common bile duct measures 6 mm. The liver measures 12.2 cm i n length. Portal vein flow appears relatively normal. The right kidney measures 9 5 cm in length. The liver is echogenic, suggesting steatosis. Impression: Echogenic liver suggesting steatosis without other acute abnormality seen. Study is limit ed Reported By:
[2017-09-26 21:49] LABS: ALBUMIN 2.5 g/dL (3.4-5.0); CALCIUM 6.5 mg/dL (8.5-10.1); CARBON DIOXIDE 22.4 mmol/L (21-32); COR CA(FOR HYPOALB) 7.7 mg/dL (8.5-10.1); CREATININE 3.84 mg/dL (0.55-1.02); TOTAL PROTEIN 7.4 g/dL (6.4-8.2)
[2017-09-27] MEDS ORDERED: DOPAMINE IV PREMIX 400 MG/250 ML 400 MG/250 ML BAG IV ONE ×2 (00:52→03:49)
[2017-09-27] MEDS: DOPAMINE IV PREMIX 400 MG/250 ML 400 MG/250 ML BAG IV PRN ×4 (01:00→13:06)
[2017-09-27] MEDS: NS 1000 ML 1,000 ML IV SCH ×4 (02:54→11:20)
[2017-09-27 03:37] LABS: BASOPHILS % (AUTO) 0.2 % (0.2-1.0); EOSINOPHILS # (AUTO) 0.2 x10^3/uL (0.0-0.2); EOSINOPHILS % (AUTO) 1.3 % (0.9-2.9); HEMATOCRIT 36.8 % (36.0-47.0); HEMOGLOBIN 11.8 g/dL (12.0-16.0); LYMPHOCYTES # (AUTO) 0.8 X10^3/uL (1.3-2.9); LYMPHOCYTES % (AUTO) 4.7 % (21.0-51.0); MEAN CORPUSCULAR HEMOGLOBIN 26.2 pg (27.0-34.0); MEAN CORPUSCULAR VOLUME 81.9 fL (80.0-100.0); MEAN PLATELET VOLUME 9.9 fL (7.4-11.0); MONOCYTES # (AUTO) 2.3 x10^3/uL (0.3-0.8); MONOCYTES % (AUTO) 12.7 % (0.0-13.0); NEUTROPHILS # (AUTO) 14.6 x10^3/uL (2.2-4.8); NEUTROPHILS % (AUTO) 81.1 % (42.0-75.0); PLATELET COUNT 175 X10^3/uL (150.0-450.0); RED BLOOD COUNT 4.49 X10^6/uL (3.5-5.4); RED CELL DISTRIBUTION WIDTH 16.7 % (11.6-16.5)
[2017-09-27 03:44] LABS: ALBUMIN 2.5 g/dL (3.4-5.0); CALCIUM 6.4 mg/dL (8.5-10.1); CARBON DIOXIDE 22.6 mmol/L (21-32); COR CA(FOR HYPOALB) 7.6 mg/dL (8.5-10.1); CREATININE 3.37 mg/dL (0.55-1.02); TOTAL PROTEIN 7.3 g/dL (6.4-8.2)
[2017-09-27 03:53] LABS: BAND NEUTROPHILS % 6 % (0-10); PLATELET MORPHOLOGY COMMENT NORMAL (NORMAL)
[2017-09-27 05:19] LABS: ABG BASE EXCESS -7.3 mmol/L (-2.0-2.0); ABG HCO3 23.1 mmol/L (22-26)
[2017-09-27 05:22] LABS: ABG ALLEN TEST POS
[2017-09-27] MEDS: TYGACIL 50 MG VIAL 50 MG in NS 100 ML IV 100 ML IV SCH ×2 (05:31→18:14)
[2017-09-27] MEDS ORDERED: NS 100 ML IV 100 ML IV ONE (05:32)
--- NOTE | 2017-09-27 07:05 | RAD ---
Chest AP portable Indication: Hypovolemic shock Comparison: 09/26/2017 Findings: There is cardiomegaly. Overlying monitoring leads obscure detail. Increased interstitial ma rkings noted. Right Port-A-Cath tip is over the SVC. Impression: Cardiomegaly and pulmonary edema suggesting CHF. Reported By:
[2017-09-27] MEDS: NEURONTIN CAP 300 MG PO SCH ×2 (09:24→21:12)
[2017-09-27] MEDS ORDERED: NS 1000 ML 1,000 ML IV ONE (10:54)
[2017-09-27] MEDS ORDERED: LASIX ONE (12:04)
[2017-09-27] MEDS ORDERED: ATIVAN INJ 2 MG VIAL IVP PRN (15:54)
[2017-09-27] MEDS: PERCOCET TAB 5/325 MG PO PRN (18:27)
[2017-09-27] MEDS: MIRAPEX TAB 0.25 MG PO SCH (21:11)
[2017-09-27] MEDS: SINGULAIR TAB 10 MG PO SCH (21:11)
[2017-09-27] MEDS: SNACK - Diabetic Appropriate PO SCH (21:12)
[2017-09-28] MEDS: PERCOCET TAB 5/325 MG PO PRN ×2 (04:51→20:10)
[2017-09-28] MEDS: NS 1000 ML 1,000 ML IV SCH ×2 (04:52→10:30)
[2017-09-28 05:19] LABS: ABG ALLEN TEST POS
[2017-09-28] MEDS: TYGACIL 50 MG VIAL 50 MG in NS 100 ML IV 100 ML IV SCH ×2 (05:48→18:51)
[2017-09-28 06:46] LABS: BASOPHILS # (AUTO) 0.1 X10^3/uL (0.0-0.1); BASOPHILS % (AUTO) 0.4 % (0.2-1.0); EOSINOPHILS # (AUTO) 0.3 x10^3/uL (0.0-0.2); EOSINOPHILS % (AUTO) 2.5 % (0.9-2.9); HEMOGLOBIN 10.7 g/dL (12.0-16.0); LYMPHOCYTES # (AUTO) 0.8 X10^3/uL (1.3-2.9); LYMPHOCYTES % (AUTO) 6.8 % (21.0-51.0); MEAN CORPUSCULAR HEMOGLOBIN 26.2 pg (27.0-34.0); MEAN CORPUSCULAR HGB CONC 32.6 g/dL (33.0-35.0); MEAN CORPUSCULAR VOLUME 80.4 fL (80.0-100.0); MEAN PLATELET VOLUME 9.4 fL (7.4-11.0); MONOCYTES # (AUTO) 0.9 x10^3/uL (0.3-0.8); MONOCYTES % (AUTO) 7.2 % (0.0-13.0); NEUTROPHILS # (AUTO) 10.3 x10^3/uL (2.2-4.8); NEUTROPHILS % (AUTO) 83.1 % (42.0-75.0); PLATELET COUNT 190 X10^3/uL (150.0-450.0); RED CELL DISTRIBUTION WIDTH 16.5 % (11.6-16.5); WHITE BLOOD COUNT 12.4 X10^3/uL (3.6-10.0)
[2017-09-28 06:53] LABS: ALBUMIN 2.4 g/dL (3.4-5.0); CALCIUM 6.5 mg/dL (8.5-10.1); CARBON DIOXIDE 24.3 mmol/L (21-32); COR CA(FOR HYPOALB) 7.8 mg/dL (8.5-10.1); CREATININE 1.76 mg/dL (0.55-1.02); TOTAL PROTEIN 7.2 g/dL (6.4-8.2)
[2017-09-28 07:12] VITALS: BMI 60.4
--- NOTE | 2017-09-28 07:36 | RAD ---
HISTORY: Hypotension Study: Single-view chest Comparison: 09/27/2017 Findings: The trachea is midline. The cardiac silhouette is enlarged with a tortuous thoracic aorta. Port-A-Ca th overlying the right chest with tip in the SVC is observed. The lungs are clear without focal infi ltrate or effusion. The bony thorax is unremarkable. IMPRESSION: 1. No acute cardiopulmonary disease. Reported By:
[2017-09-28] MEDS ORDERED: NS 100 ML IV + SPIKE MINIBAG* 100 ML IV ONE (08:55)
[2017-09-28] MEDS: NEURONTIN CAP 300 MG PO SCH ×2 (09:14→20:02)
[2017-09-28] MEDS ORDERED: LASIX IVP ONE ×3 (09:19→11:28)
[2017-09-28] MEDS ORDERED: PATIENT'S HOME MEDICATION (Losartan Potassium [Losartan Potassium] 1 TAB) PO SCH (09:30)
[2017-09-28] MEDS ORDERED: PATIENT'S HOME MEDICATION (Potassium Chloride [Potassium Chloride] 1 TAB) PO SCH (09:30)
[2017-09-28] MEDS: MICRO K EXTEN CAP 10 MEQ PO SCH (11:00)
[2017-09-28] MEDS: SNACK - Diabetic Appropriate PO SCH (20:01)
[2017-09-28] MEDS: SINGULAIR TAB 10 MG PO SCH (20:01)
[2017-09-28] MEDS: MIRAPEX TAB 0.25 MG PO SCH (20:01)
[2017-09-29] MEDS: NS 1000 ML 1,000 ML IV SCH (02:21)
[2017-09-29] MEDS: TYGACIL 50 MG VIAL 50 MG in NS 100 ML IV 100 ML IV SCH (05:16)
[2017-09-29 05:25] LABS: ABG BASE EXCESS 4.4 mmol/L (-2.0-2.0)
[2017-09-29 05:26] LABS: ABG HCO3 31.1 mmol/L (22-26)
--- NOTE | 2017-09-29 05:58 | RAD ---
HISTORY: Hypotension Study: Chest AP portable Comparison: 09/28/2017 Findings: There is a right-sided port in good position. The heart is enlarged. No congestive heart failure is n oted. The lungs are mildly hypo inflated but free of acute infiltrates. The bony thorax is unremarkab le. IMPRESSION: Cardiomegaly without congestive heart failure Lungs mildly hypo inflated but clear Reported By:
[2017-09-29 06:15] LABS: BASOPHILS # (AUTO) 0.1 X10^3/uL (0.0-0.1); BASOPHILS % (AUTO) 1.1 % (0.2-1.0); EOSINOPHILS # (AUTO) 0.4 x10^3/uL (0.0-0.2); EOSINOPHILS % (AUTO) 4.1 % (0.9-2.9); HEMATOCRIT 32.9 % (36.0-47.0); LYMPHOCYTES # (AUTO) 1.7 X10^3/uL (1.3-2.9); LYMPHOCYTES % (AUTO) 16.2 % (21.0-51.0); MEAN CORPUSCULAR HEMOGLOBIN 26.5 pg (27.0-34.0); MEAN CORPUSCULAR HGB CONC 33.4 g/dL (33.0-35.0); MEAN CORPUSCULAR VOLUME 79.2 fL (80.0-100.0); MEAN PLATELET VOLUME 8.9 fL (7.4-11.0); MONOCYTES # (AUTO) 0.7 x10^3/uL (0.3-0.8); MONOCYTES % (AUTO) 6.9 % (0.0-13.0); NEUTROPHILS # (AUTO) 7.5 x10^3/uL (2.2-4.8); NEUTROPHILS % (AUTO) 71.7 % (42.0-75.0); PLATELET COUNT 200 X10^3/uL (150.0-450.0); RED BLOOD COUNT 4.15 X10^6/uL (3.5-5.4); RED CELL DISTRIBUTION WIDTH 16.4 % (11.6-16.5); WHITE BLOOD COUNT 10.5 X10^3/uL (3.6-10.0)
[2017-09-29 06:21] LABS: ALBUMIN 2.3 g/dL (3.4-5.0); CALCIUM 6.9 mg/dL (8.5-10.1); CARBON DIOXIDE 29.1 mmol/L (21-32); COR CA(FOR HYPOALB) 8.3 mg/dL (8.5-10.1); CREATININE 1.43 mg/dL (0.55-1.02); TOTAL PROTEIN 7.2 g/dL (6.4-8.2)
[2017-09-29] MEDS: NEURONTIN CAP 300 MG PO SCH (08:31)
[2017-09-29] MEDS: MICRO K EXTEN CAP 10 MEQ PO SCH (08:32)
[2017-09-29] MEDS ORDERED: COZAAR PO SCH (09:00)
[2017-09-29] MEDS ORDERED: LOPRESSOR TAB 50 MG PO SCH (10:00)
[2017-09-29 10:54] VITALS: BP 172/77
== END 2017-09-29 11:10 | disposition home or self-care (01) | DRG 871 ==
LOC: ER 05:12 → ICU 13:51
PROVIDERS: ADMIT Obstetrics & Gynecology Obstetrics; ATTEND Obstetrics & Gynecology Obstetrics
DX: R57.1 Hypovolemic shock (principal); R79.89 Other specified abnormal findings of blood chemistry; R19.7 Diarrhea, unspecified; J01.00 Acute maxillary sinusitis, unspecified; R53.1 Weakness; E11.65 Type 2 diabetes mellitus with hyperglycemia; I10 Essential (primary) hypertension; G47.33 Obstructive sleep apnea (adult) (pediatric); J81.0 Acute pulmonary edema; N17.8 Other acute kidney failure; I95.89 Other hypotension; R06.89 Other abnormalities of breathing
CPT/HCPCS: 36415; 36600; 51702; 70450; 71045; 76705; 80053; 81001; 82550; 82553; 82803; 83605; 83735; 84484; 85025; 85730; 87086; 93005; 93010; 93041; 94660; 96365; 96367; 96374; 96375; 99284; 99285; A4222; A4618; A7030; J1265; J1940; J2060; J2270

== ENCOUNTER 2017-10-03 11:24 | Emergency (ER) | payer OTHER, BC ==
[2017-10-03 11:33] VITALS: BP 177/84; BMI 56.7
--- NOTE | 2017-10-03 11:42 | DR.EXTPAIN ---
HPI - Time seen Time seen: 11:30 - PCP Primary Care Physician: rosenda - Complaint/Symptoms Chief Complaint Doctor Comments: Patient states that she lost her balance and fell when coming out of the pharmacy. She states that this is a common occurance for her (losing balance). She denies hurting herself. There was no LOC or dizziness. Chief Complaint:: patient stated she was at the [facility] and she fell by her car and the back of her head hit her car. - Source History Provided: Patient - Mode of arrival Mode of Arrival: EMS - Timing Onset of Chief Complaint: 10/03/17 PMH - PMH Past Medical History: Yes Past Medical History: Arthritis, Asthma, CHF, COPD, Diabetes, GERD, Hypertension , Kidney Stones Past Surgical History: Yes Surgical History: Cholecystectomy, RV MECHANIC Surgery - Family History History of Family Medical Conditions: Yes Family Medical History: Diabetes Mellitus, [place], Hypertension - Social History Does patient currently use any type of tobacco product: No Have you used tobacco products in the last 12 months: No Type of Tobacco Use: None Does any household member use tobacco: No Alcohol Use: None Do you use any recreational Drugs:: No Lives With: Spouse Lives Where: Home - infectious screening In the last 2 months have you had wt loss of >10#?: NO Have you had fever, night sweats or hemotysis?: No Have you traveled outside the country in the last 6 months?: No Isolation: Standard ROS - Review of Systems Constitutional: No Symptoms Reported Eyes: No Symptoms Reported ENTM: No Symptoms Reported Respiratoy: No Symptoms Reported Cardiovascular: No Symptoms Reported Gastrointestinal/Abdominal: No Symptoms Reported Genitourinary: No Symptoms Reported Neurological: No Symptoms Reported Musculoskeletal: No Symptoms Reported Integumentary: No Symptoms Reported Hematologic/Lymphatic: No Symptoms Reported Endocrine: No Symptoms Reported Psychiatric: No Symptoms Reported All Other Systems: Reviewed and Negative PE - Vital Signs Vitals: Temperature 97.9 F Pulse Rate 81 Respiratory Rate 18 Blood Pressure [Left Arm] 172/77 Blood Pressure [Right Arm] 161/75 Blood Pressure [Standing] 136/64 Blood Pressure [Sitting] 123/60 Blood Pressure [Lying] 166/63 Blood Pressure 177/84 O2 Sat by Pulse Oximetry 97 - General Limitations: No Limitations General Appearance: Alert, In No Apparent Distress - Head Head Exam: Normal Inspection, Atraumatic - Eyes Eye exam: Normal Appearance, PERRL, EOMI - ENT ENT Exam: Normal Exam - Neck Neck Exam: Normal Inspection, Full ROM - Chest Chest Inspection: Normal Inspection - Respiratory Respiratory Exam: Normal Lung Sounds Bilat Respiratory Exam: Bilateral Clear to Auscultation - Cardiovascular Cardiovascular Exam: Regular Rate - Abdominal Exam Abdominal Exam: Normal Inspection, Normal Bowel Sounds Abdominal Tenderness: negative: RUQ, RLQ, LUQ, LLQ, Epigastrium, Suprapubic, Diffuse, Mild, Moderate, Severe, Other - Extremities Extremities Exam: Normal Inspection - Upper Extremities Shoulder Exam: Normal Inspection, Full ROM Arm Exam: Normal Inspection, Full ROM Elbow Exam: Normal Inspection Forearm Exam: Normal Inspection Hand Exam: Normal Inspection Neuromotor Exam: Normal Exam Neurosensory Exam: Normal Exam Hand Tendon Exam: Flexor Digitorium Profundus (Location) Upper Ext. Vascular Exam: Capillary Refill - Lower Extremities Hip/Pelvis Exam: Normal Inspection Upper Leg Exam: Normal Inspection Knee Exam: Normal Inspection Lower Leg Exam: Normal Inspection, Other (lymhedema bilaterally) Ankle Exam: Normal Inspection Foot/Toe Exam: Normal Inspection Neurovascular/Tendon Exam: Normal Capillary Refill Gait Exam: Observed and Normal - Back Back Exam: Normal Inspection - Neurological Neurological Exam: Alert, Oriented X3, CN II-XII Intact - Psychiatric Psychiatric Exam: Normal Affect - Skin Skin Exam: Warm, Dry Distribution: Generalized ROR - Labs Reviewed Laboratory Results Reviewed?: Yes (elevated potassium) Result Diagrams: 10/03/17 11:54 10/03/17 11:54 Laboratory: WBC 10.0 X10^3/uL (3.6-10.0) 10/03/17 11:54 RBC 4.45 X10^6/uL (3.5-5.4) 10/03/17 11:54 Hgb 11.5 g/dL (12.0-16.0) L 10/03/17 11:54 Hct 35.4 % (36.0-47.0) L 10/03/17 11:54 MCV 79.5 fL (80.0-100.0) L 10/03/17 11:54 MCH 25.9 pg (27.0-34.0) L 10/03/17 11:54 MCHC 32.6 g/dL (33.0-35.0) L 10/03/17 11:54 RDW 16.5 % (11.6-16.5) 10/03/17 11:54 Plt Count 230 X10^3/uL (150.0-450.0) 10/03/17 11:54 Plt Count Comment Adequate (ADEQUATE) 10/03/17 11:54 MPV 8.4 fL (7.4-11.0) 10/03/17 11:54 Neut % 70.7 % (42.0-75.0) 10/03/17 11:54 Lymph % 16.2 % (21.0-51.0) L 10/03/17 11:54 [place]royo % 8.3 % (0.0-13.0) 10/03/17 11:54 Eos % 4.2 % (0.9-2.9) H 10/03/17 11:54 Baso % 0.6 % (0.2-1.0) 10/03/17 11:54 Neut # 7.1 x10^3/uL (2.2-4.8) H 10/03/17 11:54 Lymph # 1.6 X10^3/uL (1.3-2.9) 10/03/17 11:54 [place]o # 0.8 x10^3/uL (0.3-0.8) 10/03/17 11:54 Eos # 0.4 x10^3/uL (0.0-0.2) H 10/03/17 11:54 Baso # 0.1 X10^3/uL (0.0-0.1) 10/03/17 11:54 Absolute Nucleated RBC 0.0 /100WBC 10/03/17 11:54 Plt Morphology Comment Normal (NORMAL) 10/03/17 11:54 RBC Morphology Normal (NORMAL) 10/03/17 11:54 Sodium 139 mmol/L (136-145) 10/03/17 11:54 Corrected Sodium 139 mmol/L (136-145) 10/03/17 11:54 Potassium 5.2 mmol/L (3.5-5.1) H 10/03/17 11:54 Chloride 105 mmol/L (98-107) 10/03/17 11:54 Carbon Dioxide 28.1 mmol/L (21-32) 10/03/17 11:54 BUN 20 mg/dL (7-18) H 10/03/17 11:54 Creatinine 1.25 mg/dL (0.55-1.02) H 10/03/17 11:54 Est GFR (MDRD) Af Amer 57 (>60) L 10/03/17 11:54 Est GFR (MDRD) Non-Af 47 (>60) L 10/03/17 11:54 Glucose 113 mg/dL (65-99) H 10/03/17 11:54 Calcium 8.6 mg/dL (8.5-10.1) 10/03/17 11:54 Corrected Calcium 9.6 mg/dL (8.5-10.1) 10/03/17 11:54 Total Bilirubin 0.40 mg/dL (0.2-1.0) 10/03/17 11:54 AST 136 Units/L (15-37) H 10/03/17 11:54 ALT 106 Units/L (12-78) H 10/03/17 11:54 Alkaline Phosphatase 121 Units/L (46-116) H 10/03/17 11:54 Total Protein 7.5 g/dL (6.4-8.2) 10/03/17 11:54 Albumin 2.7 g/dL (3.4-5.0) L 10/03/17 11:54 Globulin 4.8 g/dL (2.5-4.5) H 10/03/17 11:54 Albumin/Globulin Ratio 0.6 Ratio (1.1-2.1) L 10/03/17 11:54 - Diagnosis Discharge Problem: Fall Qualifiers: Encounter type: initial encounter Qualified Code(s): W19.XXXA - Unspecified fall, initial encounter - Discharge Plan Condition: Stable - Follow ups/Referrals Follow ups/Referrals: YAS PIERSON [Primary Care Provider] - 3 days - Instructions
[2017-10-03 12:02] LABS: BASOPHILS # (AUTO) 0.1 X10^3/uL (0.0-0.1); BASOPHILS % (AUTO) 0.6 % (0.2-1.0); EOSINOPHILS # (AUTO) 0.4 x10^3/uL (0.0-0.2); EOSINOPHILS % (AUTO) 4.2 % (0.9-2.9); HEMATOCRIT 35.4 % (36.0-47.0); HEMOGLOBIN 11.5 g/dL (12.0-16.0); LYMPHOCYTES # (AUTO) 1.6 X10^3/uL (1.3-2.9); LYMPHOCYTES % (AUTO) 16.2 % (21.0-51.0); MEAN CORPUSCULAR HEMOGLOBIN 25.9 pg (27.0-34.0); MEAN CORPUSCULAR HGB CONC 32.6 g/dL (33.0-35.0); MEAN CORPUSCULAR VOLUME 79.5 fL (80.0-100.0); MEAN PLATELET VOLUME 8.4 fL (7.4-11.0); MONOCYTES # (AUTO) 0.8 x10^3/uL (0.3-0.8); MONOCYTES % (AUTO) 8.3 % (0.0-13.0); NEUTROPHILS # (AUTO) 7.1 x10^3/uL (2.2-4.8); NEUTROPHILS % (AUTO) 70.7 % (42.0-75.0); PLATELET COUNT 230 X10^3/uL (150.0-450.0); RED BLOOD COUNT 4.45 X10^6/uL (3.5-5.4); RED CELL DISTRIBUTION WIDTH 16.5 % (11.6-16.5)
[2017-10-03 12:10] LABS: PLATELET MORPHOLOGY COMMENT NORMAL (NORMAL)
[2017-10-03 12:12] LABS: ALBUMIN 2.7 g/dL (3.4-5.0); CALCIUM 8.6 mg/dL (8.5-10.1); CARBON DIOXIDE 28.1 mmol/L (21-32); COR CA(FOR HYPOALB) 9.6 mg/dL (8.5-10.1); CREATININE 1.25 mg/dL (0.55-1.02); TOTAL PROTEIN 7.5 g/dL (6.4-8.2)
[2017-10-03] MEDS ORDERED: PROVENTIL NEB TX 0.083% 2.5MG/ 3ML NEB ONE (13:26)
[2017-10-03] MEDS ORDERED: PROVENTIL NEB TX 0.083% 2.5MG/ 3ML ONE (13:29)
== END 2017-10-03 14:07 | disposition home or self-care (01) ==
LOC: ER 11:34
DX: R51 Headache (principal); W19.XXXA Unspecified fall, initial encounter; Y92.9 Unspecified place or not applicable
CPT/HCPCS: 36415; 80053; 85025; 94640; 99282; J7613

== ENCOUNTER 2017-10-13 01:02 | Emergency (ER) | payer OTHER, BC ==
[2017-10-13 01:11] VITALS: BMI 58.0
[2017-10-13] MEDS ORDERED: DUONEB 0.5 MG/3 MG NEB ONE (01:55)
[2017-10-13 01:59] LABS: BASOPHILS # (AUTO) 0.1 X10^3/uL (0.0-0.1); EOSINOPHILS # (AUTO) 0.4 x10^3/uL (0.0-0.2); EOSINOPHILS % (AUTO) 4.6 % (0.9-2.9); HEMATOCRIT 34.2 % (36.0-47.0); HEMOGLOBIN 11.3 g/dL (12.0-16.0); LYMPHOCYTES # (AUTO) 1.7 X10^3/uL (1.3-2.9); LYMPHOCYTES % (AUTO) 18.6 % (21.0-51.0); MEAN CORPUSCULAR HEMOGLOBIN 26.5 pg (27.0-34.0); MEAN CORPUSCULAR VOLUME 80.1 fL (80.0-100.0); MEAN PLATELET VOLUME 8.9 fL (7.4-11.0); MONOCYTES # (AUTO) 0.8 x10^3/uL (0.3-0.8); MONOCYTES % (AUTO) 9.1 % (0.0-13.0); NEUTROPHILS # (AUTO) 6.1 x10^3/uL (2.2-4.8); NEUTROPHILS % (AUTO) 66.7 % (42.0-75.0); PLATELET COUNT 261 X10^3/uL (150.0-450.0); RED BLOOD COUNT 4.27 X10^6/uL (3.5-5.4); RED CELL DISTRIBUTION WIDTH 16.5 % (11.6-16.5); WHITE BLOOD COUNT 9.2 X10^3/uL (3.6-10.0)
[2017-10-13 02:12] LABS: BLOOD UREA NITROGEN 14 mg/dL (7-18); CALCIUM 7.8 mg/dL (8.5-10.1); CARBON DIOXIDE 26.8 mmol/L (21-32); CHLORIDE 102 mmol/L (98-107); COR NA(FOR HYPERGLY) 140 mmol/L (136-145); CREATININE 1.16 mg/dL (0.55-1.02); SODIUM 137 mmol/L (136-145); TROPONIN I < 0.02 ng/mL (0-1.5); eGFR BLACK RACES > 60 (>60); eGFR NON BLACK RACES 52 (>60)
[2017-10-13 02:16] LABS: ALANINE AMINOTRANSFERASE 91 Units/L (12-78); ALBUMIN 2.8 g/dL (3.4-5.0); ALKALINE PHOSPHATASE 120 Units/L (46-116); ASPARTATE AMINO TRANSFERASE 72 Units/L (15-37); CKMB % 4.2 % (<4); COR CA(FOR HYPOALB) 8.8 mg/dL (8.5-10.1); CREATINE KINASE 38 Units/L (26-192); CREATINE KINASE MB 1.6 ng/mL (0-4.0); MAGNESIUM 1.7 mg/dL (1.7-2.9); TOTAL PROTEIN 7.7 g/dL (6.4-8.2)
[2017-10-13 02:23] LABS: B-TYPE NATRIURETIC PEPTIDE 142 pg/mL (0-79)
[2017-10-13 02:31] LABS: ABG BASE EXCESS 3.7 mmol/L (-2.0-2.0); ABG HCO3 28.5 mmol/L (22-26)
[2017-10-13] MEDS ORDERED: DUONEB 0.5 MG/3 MG ONE (02:36)
--- NOTE | 2017-10-13 02:49 | RAD ---
Chest, two views Indication: Shortness of breath Comparison: 09/29/2017 Findings: There is stable cardiomegaly without congestive failure. Right-sided port catheter terminat es over the mid SVC without pneumothorax. No focal consolidation or significant effusion is identifie d. There is no acute osseous abnormality. Impression: No acute cardiopulmonary abnormality or significant change since prior. Reported By:
[2017-10-13] MEDS ORDERED: LASIX IVP ONE ×2 (02:59→03:02)
[2017-10-13] MEDS ORDERED: SOLU-Medrol 125 MG VIAL IVP ONE (03:00)
[2017-10-13] MEDS ORDERED: SOLU-Medrol 125 MG VIAL ONE (03:02)
--- NOTE | 2017-10-13 03:26 | DR.GENAD ---
HPI - PCP Primary Care Physician: herzog - Complaint/Symptoms Chief Complaint:: Patient reports left lower extremity red and swollen. She also reports shortness of breath with light exertion. Patient is noted with coarse cough and shortness of breath with exertion. - Nurses notes reviewed Nurses Notes Review: Yes - Source History Provided: Patient - Mode of Arrival Mode of Arrival: Ambulatory - Timing Onset of Chief Complaint: 10/10/17 Came on: Gradually - Duration Duration: Since Onset How lon Duration: Days - Severity Severity: Moderate - Other History Other History: recent admit here 09/26/17--09/29/17 for same symptoms PMH - PMH Past Medical History: Yes Past Medical History: Arthritis, Asthma, CHF, COPD, Diabetes, GERD, Hypertension , Kidney Stones Past Surgical History: Yes Surgical History: Cholecystectomy, [employer] Surgery - Family History History of Family Medical Conditions: Yes Family Medical History: Diabetes Mellitus, [place], Hypertension - Social History Does patient currently use any type of tobacco product: No (lots of 2nd hand smoke ) Have you used tobacco products in the last 12 months: No Type of Tobacco Use: None Alcohol Use: None Do you use any recreational Drugs:: No Lives With: Family Lives Where: Home - infectious screening In the last 2 months have you had wt loss of >10#?: NO Have you had fever, night sweats or hemotysis?: No Have you traveled outside the country in the last 6 months?: No Isolation: Standard ROS - Review of Systems Constitutional: Fatigue. negative: Chills Eyes: No Symptoms Reported ENTM: No Symptoms Reported Respiratoy: See HPI, Non-Productive Cough, Short of Breath, Wheezing Cardiovascular: No Symptoms Reported Gastrointestinal/Abdominal: No Symptoms Reported Genitourinary: No Symptoms Reported Neurological: No Symptoms Reported Musculoskeletal: Other (bilat leg swelling, chronic per pt) Integumentary: No Symptoms Reported Hematologic/Lymphatic: No Symptoms Reported Endocrine: No Symptoms Reported Psychiatric: No Symptoms Reported All Other Systems: Reviewed and Negative PE - Vital Signs Vitals: Temperature 99.9 F Pulse Rate [Apical] 81 Pulse Rate 83 Respiratory Rate 20 Blood Pressure [Left Arm] 163/82 Blood Pressure [Right Arm] 161/75 Blood Pressure [Standing] 136/64 Blood Pressure [Sitting] 123/60 Blood Pressure [Lying] 166/63 Blood Pressure 185/82 O2 Sat by Pulse Oximetry 97 - General Limitations: No Limitations General Appearance: Alert, In No Apparent Distress, Other (able to speak full sentences with no difficulty) - Head Head Exam: Normal Inspection, Atraumatic, Normocephalic - Eyes Eye exam: Normal Appearance - ENT ENT Exam: Normal Exam, Normal Oropharynx Throat Exam: Normal Inspection - Neck Neck Exam: Normal Inspection, Full ROM, Trachea Midline - Chest Chest Inspection: Symmetric Chest Wall Rise - Respiratory Respiratory Exam: negative: Accessory Muscle Use, Respiratory Distress Respiratory Exam: Bilateral Wheezing (mild), Bilateral Decreased Breath Sounds - Cardiovascular Cardiovascular Exam: Regular Rate, Normal Rhythm, Normal Heart Sounds - Abdominal Exam Abdominal Exam: Normal Inspection, Normal Bowel Sounds, Soft. negative: Distention, Tenderness, Guarding, Rebound - Extremities Extremities Exam: Edema (sig edema LE bilat, pt states this is normal for her) - Neurologic Neurological Exam: Alert, Oriented X3 - Psychiatric Psychiatric Exam: Normal Affect, Normal Mood ROR - Labs Reviewed Laboratory Results Reviewed?: Yes (reviewed labs with pt.) Result Diagrams: 10/13/17 01:46 10/13/17 01:46 Laboratory: WBC 9.2 X10^3/uL (3.6-10.0) 10/13/17 01:46 RBC 4.27 X10^6/uL (3.5-5.4) 10/13/17 01:46 Hgb 11.3 g/dL (12.0-16.0) L 10/13/17 01:46 Hct 34.2 % (36.0-47.0) L 10/13/17 01:46 MCV 80.1 fL (80.0-100.0) 10/13/17 01:46 MCH 26.5 pg (27.0-34.0) L 10/13/17 01:46 MCHC 33.0 g/dL (33.0-35.0) 10/13/17 01:46 RDW 16.5 % (11.6-16.5) 10/13/17 01:46 Plt Count 261 X10^3/uL (150.0-450.0) 10/13/17 01:46 MPV 8.9 fL (7.4-11.0) 10/13/17 01:46 Neut % (Auto) 66.7 % (42.0-75.0) 10/13/17 01:46 Lymph % (Auto) 18.6 % (21.0-51.0) L 10/13/17 01:46 Bradford % (Auto) 9.1 % (0.0-13.0) 10/13/17 01:46 Eos % (Auto) 4.6 % (0.9-2.9) H 10/13/17 01:46 Baso % (Auto) 1.0 % (0.2-1.0) 10/13/17 01:46 Neut # (Auto) 6.1 x10^3/uL (2.2-4.8) H 10/13/17 01:46 Lymph # (Auto) 1.7 X10^3/uL (1.3-2.9) 10/13/17 01:46 Bradford # (Auto) 0.8 x10^3/uL (0.3-0.8) 10/13/17 01:46 Eos # (Auto) 0.4 x10^3/uL (0.0-0.2) H 10/13/17 01:46 Baso # (Auto) 0.1 X10^3/uL (0.0-0.1) 10/13/17 01:46 Absolute Nucleated RBC 0.1 /100WBC 10/13/17 01:46 INR Target Range - 10/13/17 01:46 INR 1.04 (0.8-1.3) 10/13/17 01:46 APTT 29.3 SECONDS (22.9-36.5) 10/13/17 01:46 PTT Comment - 10/13/17 01:46 D-Dimer 674 ng/mL (0-400) H* 10/13/17 01:46 Sample Site Rbra 10/13/17 02:12 ABG pH 7.430 (7.35-7.45) 10/13/17 02:12 ABG pCO2 43.0 mmHg (35.0-45.0) 10/13/17 02:12 ABG pO2 104.0 mmHg (80.0-100.0) H 10/13/17 02:12 ABG HCO3 28.5 mmol/L (22-26) H 10/13/17 02:12 ABG O2 Saturation 98.0 % (90-100) 10/13/17 02:12 ABG Base Excess 3.7 mmol/L (-2.0-2.0) H 10/13/17 02:12 Huber Test Na 10/13/17 02:12 A-a Gradient -8.0 mmHg 10/13/17 02:12 FiO2 21.000 10/13/17 02:12 Blood Gas Comments Wilmar abg well-mtf 10/13/17 02:12 Sodium 137 mmol/L (136-145) 10/13/17 01:46 Corrected Sodium 140 mmol/L (136-145) 10/13/17 01:46 Potassium 4.3 mmol/L (3.5-5.1) 10/13/17 01:46 Chloride 102 mmol/L (98-107) 10/13/17 01:46 Carbon Dioxide 26.8 mmol/L (21-32) 10/13/17 01:46 BUN 14 mg/dL (7-18) 10/13/17 01:46 Creatinine 1.16 mg/dL (0.55-1.02) H 10/13/17 01:46 Est GFR (MDRD) Af Amer > 60 (>60) 10/13/17 01:46 Est GFR (MDRD) Non-Af 52 (>60) L 10/13/17 01:46 Glucose 239 mg/dL (65-99) H 10/13/17 01:46 Calcium 7.8 mg/dL (8.5-10.1) L 10/13/17 01:46 Corrected Calcium 8.8 mg/dL (8.5-10.1) 10/13/17 01:46 Magnesium 1.7 mg/dL (1.7-2.9) 10/13/17 01:46 Total Bilirubin 0.20 mg/dL (0.2-1.0) 10/13/17 01:46 AST 72 Units/L (15-37) H 10/13/17 01:46 ALT 91 Units/L (12-78) H 10/13/17 01:46 Alkaline Phosphatase 120 Units/L (46-116) H 10/13/17 01:46 Creatine Kinase 38 Units/L (26-192) 10/13/17 01:46 CK-MB (CK-2) 1.6 ng/mL (0-4.0) 10/13/17 01:46 CK/CKMB % Calc 4.2 % (<4) 10/13/17 01:46 Troponin I < 0.02 ng/mL (0-1.5) 10/13/17 01:46 B-Natriuretic Peptide 142 pg/mL (0-79) H 10/13/17 01:46 Total Protein 7.7 g/dL (6.4-8.2) 10/13/17 01:46 Albumin 2.8 g/dL (3.4-5.0) L 10/13/17 01:46 Globulin 4.9 g/dL (2.5-4.5) H 10/13/17 01:46 Albumin/Globulin Ratio 0.6 Ratio (1.1-2.1) L 10/13/17 01:46 - Diagnosis Discharge Problem: COPD exacerbation - Discharge Plan Disposition: HOME, SELF-CARE Condition: Stable - Follow ups/Referrals Follow ups/Referrals: NFD,None [Primary Care Provider] - 3 days - Instructions Additional Notes - Additional Notes Additional Notes: pt feels much better after meds and neb tx, wants to go home, does not want to be admitted. Pt has all meds at home and neb machine, will give her the mask that she asks for. Pt encouraged to return if symptoms recur.
[2017-10-13 03:57] VITALS: BP 163/82
== END 2017-10-13 04:08 | disposition home or self-care (01) ==
LOC: ER 01:02
DX: J44.1 Chronic obstructive pulmonary disease with (acute) exacerbation (principal)
CPT/HCPCS: 36415; 36600; 71046; 80053; 82550; 82553; 82803; 83735; 83880; 84484; 85025; 85378; 85610; 85730; 93005; 93010; 94640; 96365; 96374; 96375; 99283; A4216; A4222; J1940; J2930; J7620